=== PATIENT | female | born 1945 | race Caucasian/White ===

== ENCOUNTER 2020-02-24 11:09 | Inpatient (IN) | payer MEDICARE ==
[~2020-02-24] VITALS: Ht 157.5 cm; Wt 132.8 kg
[2020-02-27] MEDS ORDERED: LASIX80 MG PO (09:24)
[2020-02-27] MEDS ORDERED: FEMARA2.5 MG PO (09:24)
[2020-02-27] MEDS ORDERED: BAYER CHEWABLE81 MG PO (09:24)
[2020-02-27] MEDS ORDERED: METOPROLOL TART50 MG PO (09:25)
[2020-02-27] MEDS ORDERED: LISINOPRIL2.5 MG PO (09:25)
[2020-02-27] MEDS ORDERED: LIPITOR40 MG PO (09:26)
[2020-02-27] MEDS ORDERED: ULTRAM50 MG PO (09:26)
[2020-02-27 10:52] LABS: BILIRUBIN NEGATIVE (NEGATIVE); GLUCOSE NEGATIVE (NEGATIVE); KETONE NEGATIVE (NEGATIVE); NITRITE NEGATIVE (NEGATIVE); UROBILINOGEN NORMAL (NORMAL)
[2020-02-27 11:35] LABS: HEMATOCRIT 42.1 % (36.0-48.0); HEMOGLOBIN 13.4 g/dL (12-16); MCH 30.2 pg (26.0-34.0); MCHC 31.8 g/dL (31.0-37.0); MCV 94.8 fL (80.0-100.0); MEAN PLATELET VOLUME 10.3 fL (7.4-10.4); RBC 4.44 10x6/uL (4.00-5.40); WBC 10.8 10x3/uL (4.8-10.8)
[2020-02-27 11:59] LABS: ALBUMIN 3.4 g/dL (3.4-5.0); ANION GAP 8.5 mmol/L (8-16); BILIRUBIN - TOTAL 0.55 mg/dL (0.2-1.3); CALCIUM 9.4 mg/dL (8.5-10.1); CARBON DIOXIDE 31.7 mmol/L (21.0-32.0); CREATININE - SERUM 0.9 mg/dL (0.6-1.3); POTASSIUM - SERUM 4.2 mmol/L (3.5-5.1); PROTEIN - SERUM 7.2 g/dL (6.4-8.2)
[2020-02-27 12:45] LABS: APTT 26.4 SECONDS (22.8-39.4); INR 0.95 (0.85-1.17); PROTIME 12.6 SECONDS (11.6-15.0)
[2020-03-10] VITALS (43 sets, daily range): BP systolic 81–149; BP diastolic 47–82; BMI 37.6
[2020-03-10] MEDS ORDERED: VITAMIN D1000 UNIT PO (06:18)
[2020-03-10 06:32] LABS: BILIRUBIN NEGATIVE (NEGATIVE); GLUCOSE NEGATIVE (NEGATIVE); KETONE NEGATIVE (NEGATIVE); NITRITE NEGATIVE (NEGATIVE); UROBILINOGEN NORMAL (NORMAL)
[2020-03-10 06:32] LABS: BASOPHILS 0.3 % (0-2); EOSINOPHILS 2.2 % (0-7); HEMATOCRIT 38.9 % (36.0-48.0); HEMOGLOBIN 12.4 g/dL (12-16); IMMATURE GRANULOCYTES 0.3 % (0-5); LYMPHOCYTES 21.6 % (15-50); MCHC 31.9 g/dL (31.0-37.0); MCV 94.2 fL (80.0-100.0); MEAN PLATELET VOLUME 9.7 fL (7.4-10.4); MONOCYTES 6.5 % (2-11); NEUTROPHILS 69.1 % (40-80); PLATELET COUNT 282 10x3/uL (130-400); RBC 4.13 10x6/uL (4.00-5.40); RDW 13.9 % (11.5-14.5); WBC 9.7 10x3/uL (4.8-10.8)
[2020-03-10 06:43] LABS: ANION GAP 9.4 mmol/L (8-16); CALCIUM 9.7 mg/dL (8.5-10.1); CARBON DIOXIDE 30.2 mmol/L (21.0-32.0); CREATININE - SERUM 1.1 mg/dL (0.6-1.3); POTASSIUM - SERUM 3.6 mmol/L (3.5-5.1)
[2020-03-10 06:50] LABS: APTT 28.1 SECONDS (22.8-39.4); INR 0.99 (0.85-1.17)
--- NOTE | 2020-03-10 12:13 | NUR ---
SBP 80S. DR. ZAVALA NOTIFIED. ORDERED 250 BOLUS OF PLASMOLYTE.
--- NOTE | 2020-03-10 19:00 | NUR ---
RECIVED BEDSIDE SHIFT REPORT. PT IS SLEEPING WITH EYES CLOSED SNORING. SHE WAKES EASILY. SHE IS A&OX4, VSS. HE STATES"I DONT HAVE ANY PAIN AT THIS MOMENT". SHE IS ORIENTED TO USE OF CALL LIGHT AND MORPHINE ESCALATOR SERVICE MECHANIC BUTTON. SHE HAS ONE IN EACH HAND. HER DRESSING IS CDI, NO S/S OF BLEEDING. BOTH CHEST TUBES ON THE LEFT ARE CDI AND DRAINING SLIGHTLY. CHEST TUBES ARE HOOKED TO 20CM OF SUCTION WITH NO AIR LEAK NOTED. MELINA HOSE AND SCD'S ARE ON BILAT, MACHINE IS HOOKED AND ON. WILLIAM NOTED BELOW BLADDER AND DRAINING. LEFT SUBCLAVIN IS CDI. RIGHT RADIAL A-LINE CDI WITH WRIST PROTECTOR, EXTREMTY IS WARM AND PINK WITH GOOD SENSATION. WILL PERFORM FULL ASSESSMENT AND DOC IN FLOWSHEET. IV FLOWSHEET WILL DOC WELL. TAUGHT PT ABOUT DEEP BREATHING AND COUGHING Q2H AND SHOWED HOW TO USE A INCENTIVE SPIROMETER. PT VERBALIZED UNDERSTANDING. BED IS LEFT LOW,SIDE RAISLX2,CALL LIGHT WITHIN REACH. WILL CONITNUE TO MONITOR
--- NOTE | 2020-03-10 20:42 | NUR ---
PT IS RESTIGN IN BED WITH EYES CLOSED SNORING. SHE HAS YET TO USE HER IMPLEMENTATION COORDINATOR MORPHINE BUTTON. HER VSS. BED IS LOW,SIDE RASILSX2,CALL LIGHT WITHIN REACH. WILL CONINTUE TO MONITOR
--- NOTE | 2020-03-10 21:20 | NUR ---
PT USED SPIROMETER AND PULLED IN 500 X3. PT VOICES"NO" TO PAIN. PROVIDED ICE CHIPS PER REQEST TO WET MOUTH. VSS. BED IS LOW,SIDE RASILX2,CALL LIGHT WITHIN REACH. WILL CONINTUE TO MONITOR.
--- NOTE | 2020-03-10 23:03 | MORECARE ---
CASE MANAGEMENT DISCHARGE SUMMARY PATIENT: JAMES DUGGAN UNIT: [id number] ADM DATE: 03/10/20 AGE: 74 : 45 SEX: F ROOM/BED: [facility] AUTHOR: RUPINDER MAYS PHYSICIAN: REFERRING PHYSICIAN: MARY ZAVALA MD DATE OF SERVICE: 03/10/20 Discharge Plan Patient Name: JAMES DUGGAN [facility] [facility] 1945 Planned Disposition: Anticipated Discharge Date: Discharge Date: Expected LOS: Initial Reviewer: [email or web address] Initial Review Date: 03/10/2020 Generated: 03/11/20 12:03 am DCPIA - Discharge Planning Initial Assessment Updated by [email or web address]: Brittaney Camejo on 03/10/20 11:03 pm * Is the patient Alert and Oriented? Yes * How many steps to enter\exit or inside your home? * PCP [facility] * [facility] * Preadmission Environment Home Alone * ADLs Independent * Equipment None * List name and contact numbers for known caregivers / representatives who currently or will assist patient after discharge: IAM DUGGAN - DAUGHTER - [phone] * Verbal permission to speak to the caregivers and representatives has been obtained from the patient. Yes * Community resources currently utilized None * Additional services required to return to the preadmission environment? No * Can the patient safely return to the preadmission environment? Yes * Has this patient been hospitalized within the prior 30 days at any hospital? No Patient Name: JAMES DUGGAN Page [phone] at 2303 All edits/amendments must be made on the electronic document DICTATION DATE: 03/10/202302 MEDICAL INFORMATION OFFICER: JULES 03/10/202302 RPT#: [id number] DC DATE: STATUS: ADM IN [facility] [address] [place] [address] END OF REPORT
--- NOTE | 2020-03-10 23:09 | NUR ---
PT IS RESTING IN BED RECIVING BREATHIGN TX. SHE HAS EYES CLOSED BUT OPENS QUICKLY WHEN CALL NAME. SHE IS A&OX4. VOICES"NO" TO ANY PAIN AT THIS TIME. VSS. HAD COUGH AND DEEP BREATH WITH GOOD EFFORT. SHE VOICES" I DONT WANT TO TURN RIGHT NOW BECAUSE IT VERY UNCOMFORTABLE". PROVIDED HER WITH ICE CHIPS PER REQUEST TO WET MOUTH. RE-ASSESSMETN DONE AND WILL DOC IN FLOWSHEET. ALSO DOC I/O OF CHEST TUBES AND URINE AT THIS TIME. HER BED IS LEFT LOW,SIDE RAISLX2,CALL LIGHT WITHIN REACH. WILL CONTINUE TO MONITOR
--- NOTE | 2020-03-10 23:10 | MORECARE ---
CASE MANAGEMENT DISCHARGE SUMMARY PATIENT: JAMES DUGGAN UNIT: [id number] ADM DATE: 03/10/20 AGE: 74 : 45 SEX: F [facility] AUTHOR: RUPINDER MAYS PHYSICIAN: REFERRING PHYSICIAN: MARY ZAVALA MD DATE OF SERVICE: 03/10/20 Discharge Plan Patient Name: JAMES DUGGAN Facility: [facility]:[place] : 1945 Planned Disposition: Anticipated Discharge Date: Discharge Date: Expected LOS: Initial Reviewer: [email or web address] Initial Review Date: 03/10/2020 Generated: 03/11/20 12:10 am Comments DCP- Discharge Planning Updated by [email or web address]: Brittaney Camejo on 03/10/20 10:[address] Patient Name: JAMES DUGGAN Admission Status: Urgent Accout number: [id number] Admission Date: 03-10-2020 : 1945 Admission Diagnosis: Attending: MARY ZAVALA Current LOS: 1 Anticipated DC Date: Planned Disposition: Primary Insurance: [facility] MEDICARE SOLUTIONS Discharge Planning Comments: CM met with patient to complete initial dc planning assessment. CM educated patient on the CM role and verbal consent given by patient to complete assessment. Patient lives at home with family. Patient is independent. At discharge patient plans to return home and feels this is a safe discharge. CM discussed availability of home health, rehab services, and medical equipment. Patient will have family to transport home. Patient denied known discharge needs at this time. CM will continue to follow and will assist as needed with dc plans/needs. Software Firmware Engineer: Brittaney Camejo DCPIA - Discharge Planning Initial Assessment Updated by [email or web address]: Brittaney Camejo on 03/10/20 11:03 pm * Is the patient Alert and Oriented? Yes * How many steps to enter\exit or inside your home? * PCP LUL * [facility] * Preadmission Environment Home Alone * ADLs Independent * Equipment None * List name and contact numbers for known caregivers / representatives who currently or will assist patient after discharge: IAM DUGGAN - DAUGHTER - [phone] * Verbal permission to speak to the caregivers and representatives has been obtained from the patient. Yes * Community resources currently utilized None * Additional services required to return to the preadmission environment? No * Can the patient safely return to the preadmission environment? Yes * Has this patient been hospitalized within the prior 30 days at any hospital? No Last DP export: 03/10/20 10:03 pm Patient Name: JAMES DUGGAN Page [phone] at 2310 All edits/amendments must be made on the electronic document DICTATION DATE: 03/10/202309 AIRCRAFT LIFE SUPPORT FITTER: JULES 03/10/202309 RPT#: [id number] DC DATE: STATUS: ADM IN [facility] [address] [place] [address] END OF REPORT
[2020-03-11] VITALS (24 sets, daily range): BP systolic 90–121; BP diastolic 47–64; Ht 157.5 cm; Wt 132.8 kg
--- NOTE | 2020-03-11 01:15 | NUR ---
PT IS RESTING IN BED WITH EYES CLOSED AWAKES EASILY. VSS. SHE DOES VERABLIZES"IM HURTING ALITTLE". I ENCOURAGED HER TO USE HER PAIN BUTTON WHICH SHE PUSHED. AFTER A FEW MINUTES SHE VERBALIZED"IT IS HELPING". I REMINDED HER THAT SHE CAN PUSH THE BUTTON EVERY 10 MINUTES IF NEEDED FOR PAIN. SHE VERALIZED UNDERSTANDING. PROVIDED ICE CHIPS PER REQUEST. HAD HER COUGH AND DEEP BREATH. BED WAS LEFT LOW,SIDE RAISLX2,CALL LIGHT WITHIN REACH. WILL CONINTUE TO MONITOR
--- NOTE | 2020-03-11 03:12 | NUR ---
PT IS RESTING IN BED WITH EYES CLOSED, WAKES EASILY. VSS. RE-ASSESSMENT PERFORMED AND WILL DOC IN FLOWSHEET. SHE VOICES"NO" TO PAIN AT THIS TIME. SO NET MENDER MORPHINE IS MANAGING PAIN WELL. I/O'S PERFORMED AND WILL DOC IN FLOWSHEET. REPOSITIONED MELINA HOSE FOR COMFORT AND SCD'S ARE ON BILAT. BED IS LEFT LOW,SIDE RAISLX2,CALL LIGHT WITHIN REACH. WILL CONITNUE TO MONITOR
--- NOTE | 2020-03-11 05:22 | NUR ---
PT IS RESTING IN BED WITH EYES CLOSED, VSS. WAKES EASILY. TURNED CARFULLY BY LOG ROLLING TO PLACE AIR MATTRES UNDER PT. SHE TOLERATED WELL BY SAYING "IT FELLS GOOD TO MOVE ACUTALLY". PROVIDED HER WITH ICE CHIPS WHICH SHE TOLERATES WELL. BED IS LEFT LOW,SIDE RAISLX2,CALL LIGHT WITHIN REACH. WILL CONITNUE TO MONITOR
[2020-03-11 05:31] LABS: BASOPHILS 0.1 % (0-2); EOSINOPHILS 0.5 % (0-7); HEMATOCRIT 37.4 % (36.0-48.0); HEMOGLOBIN 11.9 g/dL (12-16); IMMATURE GRANULOCYTES 0.2 % (0-5); LYMPHOCYTES 11.4 % (15-50); MCH 30.3 pg (26.0-34.0); MCHC 31.8 g/dL (31.0-37.0); MCV 95.2 fL (80.0-100.0); MEAN PLATELET VOLUME 9.6 fL (7.4-10.4); MONOCYTES 4.9 % (2-11); NEUTROPHILS 82.9 % (40-80); PLATELET COUNT 246 10x3/uL (130-400); RBC 3.93 10x6/uL (4.00-5.40); RDW 14.1 % (11.5-14.5); WBC 11.4 10x3/uL (4.8-10.8)
[2020-03-11 06:11] LABS: ALBUMIN 2.8 g/dL (3.4-5.0); ANION GAP 8.9 mmol/L (8-16); BILIRUBIN - TOTAL 0.92 mg/dL (0.2-1.3); POTASSIUM - SERUM 3.9 mmol/L (3.5-5.1); PROTEIN - SERUM 6.4 g/dL (6.4-8.2)
--- NOTE | 2020-03-11 06:38 | NUR ---
PT IS RESTING IN BED WITH EYES CLOSED, WAKES EASILY. VSS. PROVIDED ICE CHIPS TO WET MOUTH. PT STILL TOLERATING WELL WITH NO N/V. SHE VOICES"NO" TO ANY PAIN AT THIS TIME. BED IS LOW,SIDE RAISLX2,CALL LIGHT WITHIN REACH.
--- NOTE | 2020-03-11 07:00 | NUR ---
AWAKES EASILY TO VERBAL STIMULI SKIN WARM AND DRY. CHEST TUBE LEFT SIDE FLUCUATE WITH RESP. SERSANG DRAINAGE IN TUBES. TO 20 CM SUCTION. LEFT SUBCLAVIAN CENTRAL LINE INFUSING WITH PLASAMAYLTE, ZINCEF AND MORPHINE GREENBELT. WILLIAM CATH PATENT DRAINING CLEAR ROBINA URINE. MONITOR SR. DENIES PAIN.
--- NOTE | 2020-03-11 08:00 | NUR ---
CLEAR L IQUD BREAKFAST SERVED. ATE JELLO COFFEE AND JUICE. REVIEWED MENU FOR LUNCH.
--- NOTE | 2020-03-11 11:01 | OP ---
PATIENT NAME: JAMES DUGGAN MEDICAL RECORD: [id number] :[birth year] LOCATION:[facility] D.CV05 ADMISSION DATE:03/10/20 SURGEON: MARY ZAVALA MD DATE OF OPERATION: 03/10/2020 SURGEON: Mary Zavala MD PROCEDURES PERFORMED: 1. Left thoracoscopy. 2. Left upper lobe lobectomy. 3. Mediastinal lymph node dissection. 4. Bronchoscopy. PREOPERATIVE DIAGNOSIS: Small cell carcinoma of the lung. POSTOPERATIVE DIAGNOSIS: Small cell carcinoma of the lung. ANESTHESIA: General endotracheal anesthesia. ESTIMATED BLOOD LOSS: 20 cc. COMPLICATIONS: None. SPECIMENS: 1. Left upper lobe. 2. Lymph node from 5 discrete stations, AP window, paraaortic inferior pulmonary ligament. COMPLICATIONS: None. CONDITION: Stable. DISPOSITION: ICU. OPERATIVE FINDINGS: Relatively well-developed fissures, mass in the upper lobe near the major fissure and a calcified granuloma of the lower lobe. Several adhesions to the medial aspect of the upper lobe, limited ability for full thoracoscopy. Also with difficulty due to the patient's obese size and large chest diameter, required extension of the mini thoracotomy to allow safe resection. Postoperatively, no air leak and good reexpansion. OPERATIVE INDICATION: Biopsy proven carcinoma of the lung without evidence of lymph node metastasis. PROCEDURE IN DETAIL: The patient was brought to the operating suite. Double lumen endotracheal anesthesia was obtained, bronchoscopy was performed. No endobronchial lesions. The patient turned into the right lateral decubitus position with appropriate padding including axillary roll. Left chest sterilely prepped and draped. Working anteriorly at the midclavicular line about the 8th interspace, a scope was introduced. Visualization was performed, but the mass could not be identified. Posterolateral thoracotomy was made. Dissection of the rib was removed to allow a trap door type opening and working under direct finger palpation, the mass was identified. Additionally, granuloma of the lower lobe. The fissure was retracted medially and the hilum was dissected out, but working was difficult due to the large distance between the skin and the chest; OPERATIVE REPORT [id number] JAMES DUGGAN therefore, the incision was extended and a formal thoracotomy incision was made. Hilum was freed, branch of the pulmonary artery were divided with staple gun and ligatures and suture ligatures. Pulmonary vein was identified from the lower lobe and kept out of harm's way. Superior pulmonary vein was divided. Bronchus was dissected out after dividing the fissures and the bronchus was stapled after ensuring that the lower lobe would reinflate. Hemostasis was ensured, one suture at the edge of bronchial artery. Thorough irrigation with saline. No air leak under water. Chest was replaced apically and inferiorly. Lung was reinflated. The chest was closed with pericostal sutures, two running muscle layer, subcutaneous and subcuticular. The patient returned to the supine position, extubated in good condition to ICU. TRANSINT:[id number] Voice Confirmation ID: [id number] DOCUMENT ID: [id number] MARY ZAVALA MD at 1101 CC: TAMIR MOURA MD and LINDA MCCARTY [id number] DICTATION DATE: 03/10/20 1511 PLANNING DIVISION SUPERINTENDENT: 03/10/20 2351 ADM IN [facility] [address] [place] [address]
--- NOTE | 2020-03-11 11:30 | NUR ---
HELGA DC'D RIGHT RADIAL. PRESSURE HELD 5 MIN. NO BLEEDING FROM SITE. SMALL BRUISE NOTED. PRESSURE DRESSING APPLIED. PATIENT TOLERATED WELL ENCOURAGE INCENTIVE SPIROMETRY. TAKING PO FLUIDS WELL.
--- NOTE | 2020-03-11 12:15 | NUR ---
LUNCH TRAY SERVED. EXPLAINED WHERE FOOD IS ON PLATE. DUE TO MINITED VISION.
--- NOTE | 2020-03-11 13:25 | NUR ---
SITTING ON SIDE OF BED PER PHYSICAL THERAPY. TOLERATING WELL
--- NOTE | 2020-03-11 16:30 | NUR ---
DINNER TRAY SERVED. ANDERS AT BEDSIDE. GOOD COUGH EFFORT. ENCOURAGE TO USE INCENTIVE JOHNNY.
--- NOTE | 2020-03-11 19:30 | NUR ---
PT AOX4, VSS, C/O PAIN 11/14- FISHER TERRAPIN TEACHING COMPLETED, PT VERBALIZES UNDERSTANDING. LUNG SOUNDS CLEAR/DIMINISHED, STRONG COUGH, I/S COMPLETED REACHING 500 X10. S1S2 HEARD, PERIPHERAL PULSES PRESENT. BOWEL SOUNDS ACTIVE IN ALL QUADRANTS. CT X2 TO L CHEST INTACT, SEROUS DRAINAGE PRESENT. PT REPOSITIONED WITH PROMINENCES BRIDGED. VSS, DENIES NEEDS. CPOC.
--- NOTE | 2020-03-11 20:00 | NUR ---
PT STATES PAIN IS NOW A 1-2, COMFORTABLE LEVEL PER PT. RESTING, VSS.
--- NOTE | 2020-03-11 21:35 | NUR ---
HS MEDS GIVEN, FRESH WATER TO BEDSIDE. PT REPOSITIONED WITH PROMINENCES BRIDGED. COUGH/DB/IS WITH GOOD EFFORT. VSS.
--- NOTE | 2020-03-11 23:44 | NUR ---
PT REPOSITIONED, PROMINENCES BRIDGED. COUGH/DB ENCOURAGED. I/S COMPLETED REACHING 500 X10. NO C/O PAIN AT THIS TIME. VSS. CALL LIGHT AND POT FLUXER BUTTON WITHIN PT REACH. CPOC.
[2020-03-12] VITALS (24 sets, daily range): BP systolic 103–140; BP diastolic 48–83
--- NOTE | 2020-03-12 00:40 | NUR ---
CVL DRESSING CHANGED PER PROTOCOL USING STERILE TECHNIQUE
--- NOTE | 2020-03-12 01:44 | NUR ---
PT REPOSITIONED WITH PROMINENCES BRIDGED, COUGH/DB WITH GOOD EFFORT. COMPLETED I/S REACHING 500 X10. VSS, CPOC.
--- NOTE | 2020-03-12 03:30 | NUR ---
COUGH/DB/IS WITH GOOD EFFORT. PT REPOSITIONED WITH PROMINENCES BRIDGED. CPOC.
--- NOTE | 2020-03-12 05:30 | NUR ---
CHG BATH AND COMPLETE LINEN CHANGE PROVIDED. UP TO CHAIR WITH RN X2. VSS, CPOC.
[2020-03-12 06:09] LABS: BASOPHILS 0.2 % (0-2); EOSINOPHILS 2.2 % (0-7); HEMATOCRIT 35.7 % (36.0-48.0); HEMOGLOBIN 11.1 g/dL (12-16); IMMATURE GRANULOCYTES 0.4 % (0-5); LYMPHOCYTES 13.6 % (15-50); MCH 29.8 pg (26.0-34.0); MCHC 31.1 g/dL (31.0-37.0); MEAN PLATELET VOLUME 9.6 fL (7.4-10.4); MONOCYTES 5.2 % (2-11); NEUTROPHILS 78.4 % (40-80); PLATELET COUNT 229 10x3/uL (130-400); RBC 3.72 10x6/uL (4.00-5.40); RDW 14.4 % (11.5-14.5); WBC 11.1 10x3/uL (4.8-10.8)
[2020-03-12 06:46] LABS: ALBUMIN 2.6 g/dL (3.4-5.0); ANION GAP 8.1 mmol/L (8-16); BILIRUBIN - TOTAL 0.5 mg/dL (0.2-1.3); CALCIUM 8.8 mg/dL (8.5-10.1); CARBON DIOXIDE 30.9 mmol/L (21.0-32.0); CREATININE - SERUM 0.9 mg/dL (0.6-1.3); PROTEIN - SERUM 6.3 g/dL (6.4-8.2)
--- NOTE | 2020-03-12 07:30 | NUR ---
UP IN CHAIR AT BEDSIDE AWAKES WITHOUT DIFFICULTY. SKIN WARM AND DRY. CHEST TUBE RIGHT SIDE FLUCUATING WITH RESP. RATE. SERSANG DRAINAGE IN TUBING. NO AIR LEAK NOTED. GOOD COUGH PRODUCTIVE BLOODY SPUTUM. OXYGEN AT 2 LITERS PER NC. LEFT SUBCLAVIAN CENTRAL LINE INFUSING WITH PLASAMALYTE AT 30 ML HOUR, MORPHINE DEPENDENCY DIRECTOR. PATIENT STATES SHE DOES FORGET TO USE IT. WILLIAM CATH PATENT CLEAR ROBINA URINE. MONITOR SR-ST. ENCOURAGE TO USE INCENTIVE SPIROMETRY. PATIENT IS LEGALLY BLIND, BUT STATES SHE CAN SEE THE GREEN LIGHT ON HER DEPENDENCY DIRECTOR BUTTON. NEEDS ADDITIONAL INSTRUCTIONS WITH MEALS.
--- NOTE | 2020-03-12 08:00 | NUR ---
BREAKFAST SERVED. DRANK JUICE AND COFFEE, ATE A FEW BITES. NOT A BREAKFAST PERSON.
--- NOTE | 2020-03-12 09:00 | NUR ---
FAMILY HERE UPDATE GIVEN. READJUSTED IN CHAIR.
--- NOTE | 2020-03-12 10:24 | NUR ---
DR. ACKERMAN HERE TALKED WITH PATIENT.
--- NOTE | 2020-03-12 11:30 | NUR ---
LUNCH TRAY SERVED REPOSITIONED IN CHAIR.
--- NOTE | 2020-03-12 13:19 | NUR ---
RETURNED TO BED PER PHYSICAL THERAPY PATIENT TOLERATED FAIR. FAMILY HERE UPDATE GIVEN. ATE GOOD LUNCH.
--- NOTE | 2020-03-12 13:40 | NUR ---
HERE SUCTION DC'D TO CHEST TUBES
--- NOTE | 2020-03-12 15:00 | NUR ---
SLEEPING EYES CLOSED RESP DEEP AND REGULAR. NO DISTRESS. ALLOWED PATIENT TO REST
--- NOTE | 2020-03-12 16:42 | NUR ---
AWAKES EASILY TO VERBAL STIMULI SKIN WARM AND DRY. DINNER TRAY SERVED. NO AIR LEAK NOTED ON CHEST TUBES. MONITOR SR. SCD ON LOWER LEGS
[2020-03-13] VITALS (22 sets, daily range): BP systolic 96–131; BP diastolic 43–74
[2020-03-13 06:35] LABS: eGFR NON AFRICAN AMERICAN 57 mL/min (90-120)
--- NOTE | 2020-03-13 08:00 | NUR ---
SHIFT ASSESSMENT COMPLETED. DENIES PAIN. CHEST TUBES INTACT TO GRAVITY DRAIN. BREAKFAST SERVED.
[2020-03-13 08:24] LABS: BASOPHILS 0.1 % (0-2); EOSINOPHILS 1.8 % (0-7); HEMATOCRIT 32.1 % (36.0-48.0); HEMOGLOBIN 10.2 g/dL (12-16); IMMATURE GRANULOCYTES 0.4 % (0-5); LYMPHOCYTES 7.6 % (15-50); MCH 30.1 pg (26.0-34.0); MCHC 31.8 g/dL (31.0-37.0); MCV 94.7 fL (80.0-100.0); MEAN PLATELET VOLUME 9.2 fL (7.4-10.4); MONOCYTES 6.2 % (2-11); NEUTROPHILS 83.9 % (40-80); PLATELET COUNT 187 10x3/uL (130-400); RBC 3.39 10x6/uL (4.00-5.40); RDW 14.2 % (11.5-14.5); WBC 11.1 10x3/uL (4.8-10.8)
--- NOTE | 2020-03-13 09:40 | NUR ---
UP IN HALLWAY WITH PT. LIMITED DISTANCE WALKED DUE TO SOB. UP IN RECLINER AT BEDSIDE.
[2020-03-13 09:41] LABS: GLUCOSE 138 mg/dL (74-106); UREA NITROGEN 14 mg/dL (7-18)
[2020-03-13 09:42] LABS: CALC OSMOLALITY 278 mosm/kg (275-300); CREATININE - SERUM 0.7 mg/dL (0.6-1.3); SODIUM 138 mmol/L (136-145)
[2020-03-13 09:43] LABS: CARBON DIOXIDE 31.5 mmol/L (21.0-32.0); CHLORIDE - SERUM 102 mmol/L (98-107); POTASSIUM - SERUM 4.1 mmol/L (3.5-5.1)
[2020-03-13 09:44] LABS: CALCIUM 7.7 mg/dL (8.5-10.1)
[2020-03-13 09:45] LABS: ALKALINE PHOSPHATASE 94 U/L (30-120); ALT (SGPT) 56 U/L (10-68)
[2020-03-13 09:46] LABS: ALBUMIN 2.2 g/dL (3.4-5.0); BILIRUBIN - TOTAL 0.62 mg/dL (0.2-1.3); PROTEIN - SERUM 5.2 g/dL (6.4-8.2)
--- NOTE | 2020-03-13 10:38 | NUR ---
Nutrition Follow-up: POD 3 thoracotomy. Pt reports good appetite but states that she is not a breakfast eater. Denies N/V, chewing/swallowing difficulties. Diet: Regular Wt: 195# (03/13); 205.1# (03/11) Last BM: 03/09 Labs noted: Glu 124, Ca 7.5, Alb 1.3 Meds noted: Protonix -Encourage PO intake and honor food preferences. -Monitor wt. -RD following.
--- NOTE | 2020-03-13 11:30 | NUR ---
REASSESSMENT DONE. REMAINS UP IN CHAIR. DENIES PAIN.
--- NOTE | 2020-03-13 12:30 | NUR ---
CHG BATH GIVEN. ASSISTED TO BED. C/O BACK DISCOMFORT AFTER SITTING IN CHAIR. REFUSES PAIN MED. NO MORPHINE ELECTRICIAN JOURNEYMAN WIREMAN USED THIS SHIFT.
--- NOTE | 2020-03-13 14:05 | NUR ---
CHEST TUBES REMOVED BY DR. ZAVALA. STERILE 4X4 AND TEGADERM OCCLUSIVE DRESSING APPLIED. TOLERATED WELL. SPO2 MID-90S ON 2L/M O2.
[2020-03-13] MEDS ORDERED: LOPRESSOR25 MG PO (14:45)
[2020-03-13] MEDS ORDERED: PERCOCET 5-3251 TAB PO (14:48)
--- NOTE | 2020-03-13 16:00 | NUR ---
ELECTRIC CELL TENDER AND PLASMALYTE DISCONTINUED. CVL IS SALINE LOCKED.
--- NOTE | 2020-03-13 16:50 | NUR ---
SUPPER SERVED. DENIES PAIN. ENCOURAGED TO USE INCENTIVE SPIROMETER. SINUS TACHYCARDIA ON MONITOR.
--- NOTE | 2020-03-13 18:00 | NUR ---
SLEEPING WITH HOB AT 30 DEGREES. TEMP 99.9 VIA WILLIAM PROBE. SPO2 97 ON 2L/M O2.
--- NOTE | 2020-03-13 19:00 | NUR ---
REPORT RECEIVED. RECEIVED PATIENT IN BED. RESTING WITH EYES CLOSED, EASILY ROUSED AND ALERT. ORIENTED X 4. DENIES PAIN. ASSESSMENT COMPLETED PER FLOW SHEET WITH NO ACUTE DISTRESS OBSERVED. MONITORS CONNECTED TO PATIENT WITH ALARMS SET. VSS. CALL LIGHT IN REACH AND ABLE TO UTILIZE TO MAKE NEEDS KNOWN. INSTRUCTED ON USE OF INSENTIVE SPIROMETER AND COUGHING/DEEP BREATHING. PATIENT VERBALIZED UNDERSTANDING AND PERFORMED WITH GOOD EFFORT. DENIES DYSPNEA/SOB. RESP EVEN AND UNLABORED. WILL CONTINUE CURRENT POC
[2020-03-14] VITALS (23 sets, daily range): BP systolic 115–147; BP diastolic 62–86
[2020-03-14 06:21] LABS: BASOPHILS 0.1 % (0-2); EOSINOPHILS 1.9 % (0-7); HEMATOCRIT 31.2 % (36.0-48.0); HEMOGLOBIN 9.8 g/dL (12-16); IMMATURE GRANULOCYTES 0.2 % (0-5); LYMPHOCYTES 8.7 % (15-50); MCH 29.8 pg (26.0-34.0); MCHC 31.4 g/dL (31.0-37.0); MCV 94.8 fL (80.0-100.0); MEAN PLATELET VOLUME 9.4 fL (7.4-10.4); MONOCYTES 6.2 % (2-11); NEUTROPHILS 82.9 % (40-80); PLATELET COUNT 214 10x3/uL (130-400); RBC 3.29 10x6/uL (4.00-5.40); WBC 9.2 10x3/uL (4.8-10.8)
[2020-03-14 06:46] LABS: ALKALINE PHOSPHATASE 89 U/L (30-120); ALT (SGPT) 44 U/L (10-68); CALC OSMOLALITY 283 mosm/kg (275-300); CALCIUM 8.2 mg/dL (8.5-10.1); CARBON DIOXIDE 31.7 mmol/L (21.0-32.0); CHLORIDE - SERUM 106 mmol/L (98-107); CREATININE - SERUM 0.7 mg/dL (0.6-1.3); GLUCOSE 138 mg/dL (74-106); POTASSIUM - SERUM 3.8 mmol/L (3.5-5.1); PROTEIN - SERUM 5.8 g/dL (6.4-8.2); SODIUM 141 mmol/L (136-145); UREA NITROGEN 15 mg/dL (7-18); eGFR NON AFRICAN AMERICAN 87 mL/min (90-120)
--- NOTE | 2020-03-14 07:30 | NUR ---
UP IN CHAIR AT BEDSIDE. AWAKES EASILY. SLEEPY. DENIES PAIN. OXYGEN REMOVED. PATIENT DESAT TO 88% WHILE SITTING IN CHAIR. OXYGEN REPLACED AT 2 LITERS PER NC AND PULSE OX RETURNED TO 97%. PATIENT DOES GET SHORT OF BREATH EASILY WITH AMBULATION. WILLIAM CATH PATENT DRAINING CLEAR ROBINA URINE. MONITOR ST. WHILE OXYGEN WAS OFF HEART RATE INCREASED INTO 120'S. RETURN TO 109 AFTER OXYGEN REPLACED. INCISIONS DRY AND INTACT.
--- NOTE | 2020-03-14 08:52 | NUR ---
ATE HALF OF BISCUIT AND RENDON. DRANK COFFE AND JUICE. TALKING ON PHONE
--- NOTE | 2020-03-14 13:40 | NUR ---
AMBULATED TO BATHROOM WITH OXYGEN AND WALKER TOLERATED FAIR. PASSING GAS. HERE UPDATE GIVEN. STEWART BOLAÑOS DC'D
--- NOTE | 2020-03-14 15:45 | NUR ---
SISTER HER. PATIENT EYES OPEN, MOVING ALL EXTREMITITES, RESP IN 30'S. SISTER TALKING TO PATIENT PATIENT NODING HEAD YES AND NO TO QUESTIONS APPRIOPIATELY.PATIENT NODES NO SHE DOES NOT WANT ALL MACHINES REMOVED. PATIENT NODES YES SHE WANTS MEDS TO HELP HER REST. ALLOWED SISTER TIME TO TALK WITH PATIENT. VERSED GIVEN TO REDUCE RESP RATE BELOW 30 AND ALLOW PATIEN TO REST COMFORTABLY.
--- NOTE | 2020-03-14 15:54 | NUR ---
OFFERED A BATH, PATIENT STATES MAYBE LATER. AWAKES EASILY DENIES PAIN.
--- NOTE | 2020-03-14 16:00 | NUR ---
UP IN CHAIR AT BEDSIDE. NEEDS ASSISTANCES AND WALKER TO AMBULATE, CAN NOT BALANCE HERSELF WITHOUT ASSISTANCES.
--- NOTE | 2020-03-14 16:56 | NUR ---
DINNER TRAY SERVED AND SET UP.
--- NOTE | 2020-03-14 17:05 | NUR ---
PATIENT RESTING COMFORTABLY. NO DISTRESS.
--- NOTE | 2020-03-14 17:19 | MORECARE ---
CASE MANAGEMENT DISCHARGE SUMMARY PATIENT: JAMES DUGGAN UNIT: [id number] ADM DATE: 03/10/20 AGE: 74 : 45 SEX: F [facility] AUTHOR: RUPINDER MAYS PHYSICIAN: REFERRING PHYSICIAN: MARY ZAVALA MD DATE OF SERVICE: 03/14/20 Discharge Plan Patient Name: JAMES DUGGAN Facility: [facility]:[place] : 1945 Planned Disposition: Anticipated Discharge Date: Discharge Date: Expected LOS: Initial Reviewer: [email or web address] Initial Review Date: 03/10/2020 Generated: 03/14/20 6:18 pm Comments DCP- Discharge Planning Updated by [email or web address]: Brittaney Camejo on 03/14/20 4:[address] CM spoke with patient regarding DME and CESAR was signed. Patient stated that she doesn't think she is ready for discharge. She states that she gets SOB to easily. Patient states that she thinks she needs some rehab. CESAR signed for rehab. Rehab prescreen initiated. Patient will require an auth from her insurance before she can go into rehab. She will also need to have two therapy evals. Order placed for OT eval. D/C IMM signed 03/14/20 @ 0952. CM will continue to follow and assist as needed with discharge planning / needs. DCP- Discharge Planning Updated by [email or web address]: Brittaney Camejo on 03/10/20 10:[address] Patient Name: JAMES DUGGAN Admission Status: Urgent Accout number: [id number] Admission Date: 03-10-2020 : 1945 Admission Diagnosis: Attending: MARY ZAVALA Current LOS: 1 Anticipated DC Date: Planned Disposition: Primary Insurance: [facility] MEDICARE SOLUTIONS Discharge Planning Comments: CM met with patient to complete initial dc planning assessment. CM educated patient on the CM role and verbal consent given by patient to complete assessment. Patient lives at home with family. Patient is independent. At discharge patient plans to return home and feels this is a safe discharge. CM discussed availability of home health, rehab services, and medical equipment. Patient will have family to transport home. Patient denied known discharge needs at this time. CM will continue to follow and will assist as needed with dc plans/needs. Vice Chancellor: Brittaney Camejo DCPIA - Discharge Planning Initial Assessment Updated by [email or web address]: Brittaney Camejo on 03/10/20 11:03 pm * Is the patient Alert and Oriented? Yes * How many steps to enter\exit or inside your home? * PCP [facility] * [facility] * Preadmission Environment Home Alone * ADLs Independent * Equipment None * List name and contact numbers for known caregivers / representatives who currently or will assist patient after discharge: IAM DUGGAN - DAUGHTER - [phone] * Verbal permission to speak to the caregivers and representatives has been obtained from the patient. Yes * Community resources currently utilized None * Additional services required to return to the preadmission environment? No * Can the patient safely return to the preadmission environment? Yes * Has this patient been hospitalized within the prior 30 days at any hospital? No Coverage Notice Reviewer: [email or web address] Pablo Camejo Notice Issued Date-Time: 03/14/2020 9:50 Notice Type: Patient Choice Letter Notice Delivered To: Patient Relationship to Patient: Engine Builder Name: Delivery Method: HAND - Hand Delivered Fany Days: Prior Verbal Notification: Recipient Understood Notice: Yes Recipient Signature: Yes Med Rec Note Co-signed by Attending: Coverage Notice Comment: no preference on DME no preference on rehab - INpatient @ [facility] Reviewer: [email or web address] Pablo Camejo Notice Issued Date-Time: 03/14/2020 9:52 Notice Type: IM Discharge Notice Notice Delivered To: Patient Relationship to Patient: Self Engine Builder Name: Delivery Method: HAND - Hand Delivered Fany Days: Prior Verbal Notification: Recipient Understood Notice: Yes Recipient Signature: Yes Med Rec Note Co-signed by Attending: Coverage Notice Comment: Last DP export: 03/10/20 10:10 pm Patient Name: JAMES DUGGAN Page [phone] at 1719 All edits/amendments must be made on the electronic document DICTATION DATE: 03/14/201718 PURCHASING CONTRACTING CLERK: JULES 03/14/201718 RPT#: [id number] DC DATE: STATUS: ADM IN [facility] [address] [place] [address] END OF REPORT
--- NOTE | 2020-03-14 18:20 | NUR ---
AMBULATED TO BATHROOM VOIDED. COMPLETE HIBCLENS BATH GIVEN WITH HAIR WASHED. PATIENT TOLERATED FAIR. AMBULATED TO BED. SCD TO LOWER LEGS.
--- NOTE | 2020-03-14 19:00 | NUR ---
REPORT RECEIVED AND CARE ASSUMED. RECEIVED PATIENT IN BED, RESTING WITH EYES CLOSED. EASILY ROUSED AND ALERT. RESP EVEN AND UNLABORED ON 02@ 2L/MIN VIA NC ALERT AND ORIENTED X 4. DENIES PAIN. ASSESSMENT COMPLETED PER FLOW SHEET WITH NO ACUTE DISTRESS OBSERVED. MONITORS CONNECTED TO PATIENT WITH ALARMS SET. VSS. CALL LIGHT IN REACH AND ABLE TO UTILIZE TO MAKE NEEDS KNOWN. WILL CONTINUE CURRENT POC
--- NOTE | 2020-03-14 23:00 | NUR ---
ASSISTED OUT OF BED TO BATHROOM. AMBULATED WITH USE OF WALKER AND SBA. GAIT STEADY. VOIDED WITHOUT DIFF. EASILY SHORT OF BREATH WITH MINIMAL EXERTION. ASSISTED BACK TO BED.
[2020-03-15] VITALS (24 sets, daily range): BP systolic 109–142; BP diastolic 46–87
[2020-03-15 06:31] LABS: BASOPHILS 0.2 % (0-2); EOSINOPHILS 3.2 % (0-7); HEMATOCRIT 30.9 % (36.0-48.0); HEMOGLOBIN 9.7 g/dL (12-16); IMMATURE GRANULOCYTES 0.3 % (0-5); LYMPHOCYTES 11.3 % (15-50); MCH 29.6 pg (26.0-34.0); MCHC 31.4 g/dL (31.0-37.0); MCV 94.2 fL (80.0-100.0); MEAN PLATELET VOLUME 9.4 fL (7.4-10.4); MONOCYTES 6.4 % (2-11); NEUTROPHILS 78.6 % (40-80); PLATELET COUNT 227 10x3/uL (130-400); RBC 3.28 10x6/uL (4.00-5.40); RDW 14.1 % (11.5-14.5); WBC 8.8 10x3/uL (4.8-10.8)
[2020-03-15 06:44] LABS: ALKALINE PHOSPHATASE 92 U/L (30-120); ALT (SGPT) 47 U/L (10-68); BILIRUBIN - TOTAL 0.58 mg/dL (0.2-1.3); CALC OSMOLALITY 284 mosm/kg (275-300); CALCIUM 8.5 mg/dL (8.5-10.1); CARBON DIOXIDE 31.9 mmol/L (21.0-32.0); CHLORIDE - SERUM 107 mmol/L (98-107); CREATININE - SERUM 0.7 mg/dL (0.6-1.3); GLUCOSE 137 mg/dL (74-106); POTASSIUM - SERUM 3.7 mmol/L (3.5-5.1); PROTEIN - SERUM 5.9 g/dL (6.4-8.2); SODIUM 141 mmol/L (136-145); UREA NITROGEN 18 mg/dL (7-18); eGFR NON AFRICAN AMERICAN 87 mL/min (90-120)
--- NOTE | 2020-03-15 07:00 | NUR ---
UP IN CHAIR AT BEDSIDE WITH WALKER. PATIENT TIRED NOT FEELING WELL THIS AM. SKIN WARM AND DRY. MONITOR SR-ST. LEFT SUBCLAVIAN TRIPEL LUMEN SALINE LOCDED. INCISION LEFT BACK INTACT NO RENESS OR DRAINAGE. DRESSING LEFT SIDE DRY AND INTACT. DENIES PAIN.
--- NOTE | 2020-03-15 08:00 | NUR ---
BREAKFAST SERVED ATE HALF OF [place] ROLL DRANK COFFEE. NAPPING IN CHAIR.
--- NOTE | 2020-03-15 09:00 | NUR ---
DR. ZAVALA HERE NO NEW ORDERS.
--- NOTE | 2020-03-15 10:00 | NUR ---
AMBULATED TO BATHROOM. GAIT IMPROVED WITH WALKER. LESS SHORTNESS OF BREATH
--- NOTE | 2020-03-15 11:30 | NUR ---
LUNCH TRAY SERVED AND SET UP. GOOD COUGH INCENTIVE TO 1000ML. DENIES PAIN. INCISION BACK WITHOUT REDNESS OR DRAINAGE. DRESSING LEFT LATERAL SIDE DRY AND INTACT.
--- NOTE | 2020-03-15 13:15 | NUR ---
AMBULATED TO BED WITH MINIMAL ASSISTANCES WITH WALKER. DID BECOME SHORT OF BREATH WHEN RETURNING TO BED
--- NOTE | 2020-03-15 19:00 | NUR ---
REPORT RECEIVED. PT LAYING IN BED, AAOX4. NO ACUTE DISTRESS NOTED. ASSESSMENT COMPLETED, SEE FLOWSHEET. LT SUBCLAVIAN CVL TO SL, SEE IV FLOWSHEET. WILL CONTINUE TO MONITOR.
--- NOTE | 2020-03-15 19:04 | NUR ---
RETURNED TO BED AMBULATES FAIR WITH WALKER. PAIN GIVEN TO HELP PATIENT REST
[2020-03-16] VITALS (21 sets, daily range): BP systolic 101–167; BP diastolic 50–84
--- NOTE | 2020-03-16 00:14 | NUR ---
PT ASSISTED TO BATHROOM. PT REPORTED SUDDEN, SHORT-LIVED, SHARP PAIN BESIDE RIGHT BREAST. WILL CONTINUE TO MONITOR.
--- NOTE | 2020-03-16 03:05 | NUR ---
PT TRANSPORTED TO [facility].
--- NOTE | 2020-03-16 03:24 | NUR ---
PT ASSISTED BACK IN BED FROM XRAY.
[2020-03-16 07:25] LABS: BASOPHILS 0.2 % (0-2); EOSINOPHILS 4.3 % (0-7); HEMATOCRIT 32.9 % (36.0-48.0); HEMOGLOBIN 10.3 g/dL (12-16); IMMATURE GRANULOCYTES 0.3 % (0-5); LYMPHOCYTES 18.1 % (15-50); MCH 29.9 pg (26.0-34.0); MCHC 31.3 g/dL (31.0-37.0); MCV 95.4 fL (80.0-100.0); MEAN PLATELET VOLUME 9.3 fL (7.4-10.4); MONOCYTES 5.2 % (2-11); NEUTROPHILS 71.9 % (40-80); PLATELET COUNT 272 10x3/uL (130-400); RBC 3.45 10x6/uL (4.00-5.40); RDW 14.4 % (11.5-14.5); WBC 9.4 10x3/uL (4.8-10.8)
[2020-03-16 07:32] LABS: ALBUMIN 2.1 g/dL (3.4-5.0); BILIRUBIN - TOTAL 0.4 mg/dL (0.2-1.3); CALCIUM 8.7 mg/dL (8.5-10.1); CREATININE - SERUM 0.8 mg/dL (0.6-1.3); PROTEIN - SERUM 6.1 g/dL (6.4-8.2)
--- NOTE | 2020-03-16 09:15 | NUR ---
PHYSICAL THERAPY IN ROOM. PT WALKED 250 FEET WITH MINIMAL ASSISTANCE. NO SOB NOTED. WILL CONTINEU TO MONITOR
--- NOTE | 2020-03-16 10:20 | NUR ---
Rehab Prescreening Consult recieved and the chart has been reviewed. She is [facility] and will require a preauth for the ARU. She had indicated to OT this AM during the eval she wanted to go home because her [id number] who was a nurse was going to be staying with her. Discussed wuth the CM Brittaney Camejo RN. Vickie Jiménez RN Clinical Liaison, Rehab
--- NOTE | 2020-03-16 12:04 | NUR ---
Nutrition Follow-up: POD 6 thoracotomy. Reports eating ~75% of breakfast this AM. -BM; +flatus. Diet: Regular PO intake: 63% avg x last 4 meals Wt: 210# (03/15) Labs noted: Glu 120, Alb 2.1 Meds noted: Protonix -Encourage PO intake and honor food preferences. -Monitor wt. -RD following.
--- NOTE | 2020-03-16 13:44 | NUR ---
PT SPEAKING WITH LEXI ON PHONE. WILL CONTINUE TO MONITOR
--- NOTE | 2020-03-16 22:37 | NUR ---
OT NOTE: PT COMPLETED TOILETING HYGIENE WITH SBA. PT REQUIRED MIN A WITH GARMENT MANAGEMENT. PT COMPLETED ADL MOB TASKS WITH CGA. PT DID WELL. [id number] THANK YOU,DIANNA HUMPHREY
[2020-03-17] VITALS (8 sets, daily range): BP systolic 107–154; BP diastolic 45–68
--- NOTE | 2020-03-17 07:00 | NUR ---
RECEIVED BEDSIDE REPORT ON PATIENT AND ASSUMED CARE. PATIENT ALERT AND ORIENTED X 4, SITTING UP IN BEDSIDE CHAIR, VSS. HEAD TO TOE ASSESSMENT COMPLETED.
--- NOTE | 2020-03-17 08:30 | NUR ---
DRESSING TO LEFT BACK CHANGED, BETADINE OINTMENT APPLIED, 4X4S AND TEGADERM. OLD DRESSING NOTED TO BE MOIST WITH DRAINAGE. PATIENT TO XRAY FOR CXRAY.
--- NOTE | 2020-03-17 09:10 | NUR ---
REPORT CALLED TO HARRY MORRIS. PATIENT TRANSFERRED TO ROOM 2121 VIA WHEELCHAIR.
--- NOTE | 2020-03-17 09:38 | NUR ---
ARRIVE TO ROOM VIA WHEELCHAIR FROM XRAY. NO REPORT RECIEVED AT THIS TIME. DIRECTOR [facility]RAFT [facility] WAS TOLD BY ALEXANDRA STANTON IN CVICU TO BRING PATIENT TO ROOM AFTER XRAY. 0900 MEDICATIONS NOT YET GIVEN. CALL ALEXANDRA STANTON TO REQUEST MEDICATIONS TO BE GIVEN AND CHART TO BE BROUGHT TO FLOOR. AMBULATES TO BED WITH ASSISTANCE. DENIES ANY NEEDS AT THIS TIME. CONTINUE PLAN OF CARE AND SAFETY PRECAUTIONS.
--- NOTE | 2020-03-17 16:15 | NUR ---
OT NOTE: PT COMPLETED SUPINE TO SIT WITH SBA. PT COMPLETED SIT TO STAND WITH CGA. PT COMPLETED ADL MOB WITH CGA. PT COMPLETED UE AROM WITH FUNCTIONAL WALKER MANAGEMENT. PT COMPLETED BITA SOCKS WITH MIN A. [phone] THANK YOU,DIANNA HUMPHREY
--- NOTE | 2020-03-17 16:42 | NUR ---
ALERT AND ORIENTED X4. LAYING IN BED. DC LT CHEST CVL ORDERED, TIP INTACT. PRESSURE HELD AND REMAIN FLAT PER PROTOCOL. DENIES ANY NEEDS. CONTINUE PLAN OF CARE AND SAFETY PRECAUTIONS.
--- NOTE | 2020-03-17 19:50 | NUR ---
RECEIVED BEDSIDE REPORT. PATIENT IS ALERT AND ORIENTED, RESTING COMFORTABLY IN BED. RESPIRATIONS ARE EVEN AND UNLABORED. NO S/S OF DISTRESS. NO C/O PAIN. NEEDS MET. CALL LIGHT WITHIN REACH. WILL CPOC.
[2020-03-18] VITALS: BP 111/67
[2020-03-18 04:00] VITALS: BP 110/68
[2020-03-18 06:56] LABS: BASOPHILS 0.3 % (0-2); EOSINOPHILS 3.9 % (0-7); HEMOGLOBIN 12.2 g/dL (12-16); IMMATURE GRANULOCYTES 0.7 % (0-5); LYMPHOCYTES 21.4 % (15-50); MCHC 32.1 g/dL (31.0-37.0); MCV 93.6 fL (80.0-100.0); MEAN PLATELET VOLUME 9.2 fL (7.4-10.4); MONOCYTES 5.3 % (2-11); NEUTROPHILS 68.4 % (40-80); PLATELET COUNT 294 10x3/uL (130-400); RBC 4.06 10x6/uL (4.00-5.40); RDW 14.2 % (11.5-14.5); WBC 9.1 10x3/uL (4.8-10.8)
[2020-03-18 07:40] LABS: ALBUMIN 2.3 g/dL (3.4-5.0); BILIRUBIN - TOTAL 0.49 mg/dL (0.2-1.3); CALCIUM 8.4 mg/dL (8.5-10.1); CARBON DIOXIDE 31.4 mmol/L (21.0-32.0); CREATININE - SERUM 0.9 mg/dL (0.6-1.3); POTASSIUM - SERUM 3.4 mmol/L (3.5-5.1); PROTEIN - SERUM 5.4 g/dL (6.4-8.2)
[2020-03-18 08:50] VITALS: BP 106/53
--- NOTE | 2020-03-18 09:51 | NUR ---
LARGE AMOUNTS OF SEROUS DRAINAGE PRESENT ON DRESSING. REMOVED DRESSING. CLEANED WITH WOUND CLEANSER AND APPLIED NEW PRESSURE DRESSING. SITE IS CLEAN AND INTACT. INCISIONS ARE HEALING APPROPRIATELY. WILL CTM.
--- NOTE | 2020-03-18 12:07 | MORECARE ---
CASE MANAGEMENT DISCHARGE SUMMARY PATIENT: JAMES DUGGAN UNIT: [id number] ADM DATE: 03/10/20 AGE: 74 : 45 SEX: F ROOM/BED: D.0994 AUTHOR: RUPINDER MAYS PHYSICIAN: REFERRING PHYSICIAN: MARY ZAVALA MD DATE OF SERVICE: 03/18/20 Discharge Plan Patient Name: JAMES DUGGAN Facility: [facility]:[place] : 1945 Planned Disposition: Anticipated Discharge Date: Discharge Date: Expected LOS: Initial Reviewer: [email or web address] Initial Review Date: 03/10/2020 Generated: 03/18/20 1:06 pm Comments DCP- Discharge Planning Updated by [email or web address]: Brittaney Camejo on 03/14/20 4:[address] CM spoke with patient regarding DME and CESAR was signed. Patient stated that she doesn't think she is ready for discharge. She states that she gets SOB to easily. Patient states that she thinks she needs some rehab. CESAR signed for rehab. Rehab prescreen initiated. Patient will require an auth from her insurance before she can go into rehab. She will also need to have two therapy evals. Order placed for OT eval. D/C IMM signed 03/14/20 @ 0952. CM will continue to follow and assist as needed with discharge planning / needs. DCP- Discharge Planning Updated by [id number]: Brittaney Camejo on 03/10/20 10:[address] Patient Name: JAMES DUGGAN Admission Status: Urgent Accout number: [id number] Admission Date: 03-10-2020 : 1945 Admission Diagnosis: Attending: MARY ZAVALA Current LOS: 1 Anticipated DC Date: Planned Disposition: Primary Insurance: [facility] MEDICARE SOLUTIONS Discharge Planning Comments: CM met with patient to complete initial dc planning assessment. CM educated patient on the CM role and verbal consent given by patient to complete assessment. Patient lives at home with family. Patient is independent. At discharge patient plans to return home and feels this is a safe discharge. CM discussed availability of home health, rehab services, and medical equipment. Patient will have family to transport home. Patient denied known discharge needs at this time. CM will continue to follow and will assist as needed with dc plans/needs. Numerical Tool Programmer: Brittaney Camejo DCPIA - Discharge Planning Initial Assessment Updated by [email or web address]: Brittaney Camejo on 03/10/20 11:03 pm * Is the patient Alert and Oriented? Yes * How many steps to enter\exit or inside your home? * PCP [facility] * [facility] * Preadmission Environment Home Alone * ADLs Independent * Equipment None * List name and contact numbers for known caregivers / representatives who currently or will assist patient after discharge: IAM DUGGAN - RITA - [phone] * Verbal permission to speak to the caregivers and representatives has been obtained from the patient. Yes * Community resources currently utilized None * Additional services required to return to the preadmission environment? No * Can the patient safely return to the preadmission environment? Yes * Has this patient been hospitalized within the prior 30 days at any hospital? No Coverage Notice Reviewer: [id number] Pablo Camejo Notice Issued Date-Time: 03/14/2020 9:50 Notice Type: Patient Choice Letter Notice Delivered To: Patient Relationship to Patient: Clinical Nutritionist Name: Delivery Method: HAND - Hand Delivered Fany Days: Prior Verbal Notification: Recipient Understood Notice: Yes Recipient Signature: Yes Med Rec Note Co-signed by Attending: Coverage Notice Comment: no preference on DME no preference on rehab - [facility]patient [facility] Reviewer: [id number] Pablo Camejo Notice Issued Date-Time: 03/14/2020 9:52 Notice Type: IM Discharge Notice Notice Delivered To: Patient Relationship to Patient: Self Clinical Nutritionist Name: Delivery Method: HAND - Hand Delivered Fany Days: Prior Verbal Notification: Recipient Understood Notice: Yes Recipient Signature: Yes Med Rec Note Co-signed by Attending: Coverage Notice Comment: Reviewer: [id number] Pablo Rosario Notice Issued Date-Time: 03/18/2020 9:20 Notice Type: IM Discharge Notice Notice Delivered To: Patient Relationship to Patient: Clinical Nutritionist Name: Delivery Method: HAND - Hand Delivered Fany Days: Prior Verbal Notification: Yes Recipient Understood Notice: Recipient Signature: Yes Med Rec Note Co-signed by Attending: Coverage Notice Comment: DC IMM delivered, explained, signed by the patient, and placed in chart. Signed form also left with the patient. Reviewer: [id number] - Pat Edds Notice Issued Date-Time: 03/18/2020 9:20 Notice Type: Patient Choice Letter Notice Delivered To: Patient Relationship to Patient: Clinical Nutritionist Name: Delivery Method: HAND - Hand Delivered Fany Days: Prior Verbal Notification: Recipient Understood Notice: Yes Recipient Signature: Yes Med Rec Note Co-signed by Attending: Coverage Notice Comment: home health. Last DP export: 03/14/20 4:19 pm Patient Name: JAMES DUGGAN Page [phone] at 1207 All edits/amendments must be made on the electronic document DICTATION DATE: 03/18/20 1206 CARPENTRY INSTRUCTOR: JULES 03/18/20 1206 RPT#: [id number] DC DATE: STATUS: ADM IN [facility] [address] [place] [address] END OF REPORT
[2020-03-18 16:29] LABS: APTT 27.8 SECONDS (22.8-39.4); INR 0.98 (0.85-1.17); PROTIME 12.9 SECONDS (11.6-15.0)
--- NOTE | 2020-03-18 17:04 | NUR ---
CHEST TUBE IN PLACE AND SET TO LOW SUCTION. WATER CHAMBER SEALED AND FLUCTUATES ON INSPIRATION. SEROUS SANGINOUS OUTPUT RECEIVED. WILL CTM.
--- NOTE | 2020-03-18 19:51 | NUR ---
RECEIVED BEDSIDE REPORT. ROUNDING COMPLETE. ALERT AND ORIENTED, RESTING COMFORTABLY IN BED. RESPIRATIONS ARE EVEN AND UNLABORED. NO S/S OF DISTRESS. NO C/O PAIN. CALL LIGHT WITHIN REACH. WILL CPOC.
[2020-03-18 20:00] VITALS: BP 112/59
--- NOTE | 2020-03-18 21:19 | NUR ---
OT NOTE: PT COMPLETED SUPINE TO SIT WITH CGA. PT COMPLETED EOB SITTING WITH SPV. PT COMPLETED SIT TO STAND WITH CGA. PT COMPLETED ADL MOB WITH R/W REQUIRED CGA. PT REQUIRED TOTAL A WITH BITA HILTON. [id number] THANK YOU,DIANNA HUMPHREY
[2020-03-19] VITALS: BP 119/63
[2020-03-19 08:58] VITALS: BP 102/51
[2020-03-19 09:38] LABS: ANION GAP 8.2 mmol/L (8-16); CALCIUM 8.8 mg/dL (8.5-10.1); CARBON DIOXIDE 34.5 mmol/L (21.0-32.0); POTASSIUM - SERUM 3.7 mmol/L (3.5-5.1)
[2020-03-19 09:46] LABS: BASOPHILS 0.2 % (0-2); EOSINOPHILS 4.7 % (0-7); HEMATOCRIT 33.1 % (36.0-48.0); HEMOGLOBIN 10.4 g/dL (12-16); IMMATURE GRANULOCYTES 0.8 % (0-5); LYMPHOCYTES 18.4 % (15-50); MCHC 31.4 g/dL (31.0-37.0); MCV 95.4 fL (80.0-100.0); MONOCYTES 4.7 % (2-11); NEUTROPHILS 71.2 % (40-80); PLATELET COUNT 336 10x3/uL (130-400); RBC 3.47 10x6/uL (4.00-5.40); RDW 14.2 % (11.5-14.5); WBC 10.2 10x3/uL (4.8-10.8)
[2020-03-19 11:24] VITALS: BP 113/44
--- NOTE | 2020-03-19 11:26 | NUR ---
Nutrition Follow-up: POD 9 thoracotomy. Chest tube placed yesterday. Pt reports appetite ok/normal. Requests fresh fruit with meals. Diet: Regular Wt: 292# (03/17) Last BM: 03/18 Labs reviewed Meds reviewed -Encourage PO intake and honor food preferences. -Monitor wt; noted daily wts ordered. -RD following.
[2020-03-19 15:17] VITALS: BP 107/41
--- NOTE | 2020-03-19 15:21 | NUR ---
OT NOTE: ATTEMPTED PT IN AM, HOWEVER, SHE REPORTED THAT SHE DID NOT SLEEP WELL AND THAT HER BP WAS LOW.. CHECKED ON PT LATER AND SHE WAS FEELING MUCH BETTER.. ABLE TO GET TO EOB WITH SPV; PERFORMED SIMPLE GROOMING TASKS WITH SET UP; TOILETING WITH MIN/CGA; ABLE TO AMB IN ROOM WITH WALKER, 02, AND CONTAINER FOR CHEST TUBE DRAINAGE AND CGA/MIN ASSIST; PT THEN AMBULATED INTO HALLWAY FOR STRENGTH/ENDURANCE, SHE REPORTED THAT SHE WAS FEELING MUCH BETTER. NO REST BREAKS REQUIRED FOR 150+ FT. EMELYN MAYA, OTR/L [phone]
[2020-03-19 18:31] VITALS: BP 105/59
--- NOTE | 2020-03-20 00:58 | NUR ---
CHANGED DRESSING TO LEFT SIDE OF TORSO. GAUZE SATURATED WITH DRAINAGE. UA OBTAINED AND SENT TO LAB. NO S/S OF DISTRESS. NO C/O PAIN. NEEDS MET. CALLLIGHT WITHIN REACH. WILL CPOC.
[2020-03-20 01:04] VITALS: BP 106/59
[2020-03-20 01:58] LABS: BILIRUBIN NEGATIVE (NEGATIVE); GLUCOSE NEGATIVE (NEGATIVE); KETONE NEGATIVE (NEGATIVE); NITRITE POSITIVE (NEGATIVE); UROBILINOGEN NORMAL (NORMAL)
[2020-03-20 02:00] LABS: BACTERIA MANY /hpf (NEGATIVE); EPITHELIAL CELLS 0-5 /hpf (0-5); RED CELLS - URINE 0-5 /hpf (0-5)
[2020-03-20 07:06] LABS: BASOPHILS 0.4 % (0-2); EOSINOPHILS 4.9 % (0-7); HEMOGLOBIN 10.3 g/dL (12-16); IMMATURE GRANULOCYTES 0.6 % (0-5); LYMPHOCYTES 21.9 % (15-50); MCH 29.5 pg (26.0-34.0); MCHC 30.3 g/dL (31.0-37.0); MEAN PLATELET VOLUME 9.3 fL (7.4-10.4); MONOCYTES 6.6 % (2-11); NEUTROPHILS 65.6 % (40-80); PLATELET COUNT 376 10x3/uL (130-400); RBC 3.49 10x6/uL (4.00-5.40); RDW 14.5 % (11.5-14.5); WBC 9.7 10x3/uL (4.8-10.8)
[2020-03-20 07:16] LABS: MCV 97.4 fL (80.0-100.0)
[2020-03-20 08:20] LABS: ANION GAP 9.9 mmol/L (8-16); CALCIUM 8.7 mg/dL (8.5-10.1); CARBON DIOXIDE 31.9 mmol/L (21.0-32.0); CREATININE - SERUM 0.9 mg/dL (0.6-1.3); POTASSIUM - SERUM 4.8 mmol/L (3.5-5.1)
[2020-03-20 08:49] VITALS: BP 117/67
--- NOTE | 2020-03-20 10:43 | NUR ---
UP AMBULATING HALLWAY WITH PT ASSIST. CT INTACT.
[2020-03-20 12:00] VITALS: BP 102/49
--- NOTE | 2020-03-20 12:36 | NUR ---
OT NOTE: PT COMPLETED SUPINE TO SIT WITH SBA. PT REQUIRED EXTRA TIME AT EOB SECONDARY TO DIZZNINESS. NURSING AWARE. PT COMPLETED BED TO BSC TSF WITH CGA. PT COMPLETED GARMENT MANAGEMENT WITH CGA. PT COMPLETED TOILTET HYGIENE WITH SETUP. PT REQUIRED REST BREAK. [phone] THANK YOU,DIANNA HUMPHREY
--- NOTE | 2020-03-20 15:16 | NUR ---
DRSG CHANGED TO LEFT SIDE. SEROUS DRAINAGE NOTED.
--- NOTE | 2020-03-20 19:55 | NUR ---
RECEIVED UP IN BED WITH EYES OPEN AND TV ON. ALERT AND ORIENTED X4. UP WITH ASSIST TO B/R. O2@ 2 LITERS PER N/C. IV TO LT FA SL. CHEST TUBE TO LT CHEST WITH DSG CDI. ALSO HAS DSG TO LT BACK CDI. RT ARM RESERVE D/T MASCETOMY. DENIES ANY NEEDS AT THIS TIME.
[2020-03-20 20:45] VITALS: BP 113/54
[2020-03-21] VITALS (7 sets, daily range): BP systolic 119–141; BP diastolic 54–69
--- NOTE | 2020-03-21 07:00 | NUR ---
RECEIVED REPORT. ASSUMED CARE OF PATIENT. CALL LIGHT WITHIN REACH. PATIENT WITH CHEST TUBE TO LIWS, 310 MARKED ON CANISTER AT THIS TIME. DENIES NEEDS. NO DISTRESS. WHITE BOARD UPDATED, BEDSIDE SHIFT REPORT COMPLETE.
--- NOTE | 2020-03-21 11:17 | NUR ---
NEW DRESSING APPLIED TO LEFT FLANK/SIDE AREA INCISIONS. TOLERATED WOUND CARE WELL. CHEST TUBE DRESSING REINFORCED. RESTING IN BED, NO DISTRESS.
--- NOTE | 2020-03-21 12:00 | NUR ---
OOB AMBULATING AROUND UNIT WITH PT. NO DISTRESS.
--- NOTE | 2020-03-21 15:43 | NUR ---
PIGTAIL DRAIN FROM LEFT ANTERIOR CHEST PULLED AT BEDSIDE BY . PATIENT TOLERATED REMOVAL OF DRAIN WELL. DRESSING CLEAN, DRY AND INTACT. PATIENT RESTING IN BED WITH EYES OPEN, CONVERSING ON TELEPHONE AT THIS TIME. CXR ORDERED FOR 1729. NO DISTRESS.
[2020-03-21 16:54] LABS: ALBUMIN 2.2 g/dL (3.4-5.0); ANION GAP 7.5 mmol/L (8-16); BILIRUBIN - TOTAL 0.2 mg/dL (0.2-1.3); CALCIUM 8.5 mg/dL (8.5-10.1); CARBON DIOXIDE 30.1 mmol/L (21.0-32.0); POTASSIUM - SERUM 4.6 mmol/L (3.5-5.1); PROTEIN - SERUM 5.5 g/dL (6.4-8.2)
[2020-03-21 17:03] LABS: CREATININE - SERUM 1.2 mg/dL (0.6-1.3)
--- NOTE | 2020-03-21 19:39 | NUR ---
RECIEVED LAYING IN BED WITH EYES OPEN. ALERT AND ORIENTED X4. UP TO BEDSIDE COMMODE. O2@ 2 LITERS PER N/C. IV TO LT FA SL. CHEST TUBE TO LT BACK. RT ARM RESERVED D/T MASCETOMY . DENIES ANY NEEDS AT THIS TIME.
--- NOTE | 2020-03-21 23:36 | NUR ---
REQUEST TO SKIP 0000 V/S'S AND UPDRAFT AT 0100 STATING SHE HAS NOT HAD ANY REST AND IS VERY TIRES. NOTIFIED BLIND HANGER AND RT.
[2020-03-22 02:00] VITALS: BP 123/54
--- NOTE | 2020-03-22 07:15 | NUR ---
AM ROUNDS- PT RESTING COMFORTABLY WITH EYES CLOSED, RESP EVEN AND UNLABORED ON 2L. LT FA IV SL. BEDSIDE RAILS X2, CALL LIGHT IN REACH, NAD NOTED, WILL CONTINUE PLAN OF CARE.
[2020-03-22 08:00] VITALS: BP 106/42
--- NOTE | 2020-03-22 10:52 | MORECARE ---
CASE MANAGEMENT DISCHARGE SUMMARY PATIENT: JAMES DUGGAN UNIT: [id number] ADM DATE: 03/10/20 AGE: 74 : 45 SEX: F ROOM/BED: D.5111 AUTHOR: RUPINDER MAYS PHYSICIAN: REFERRING PHYSICIAN: MARY ZAVALA MD DATE OF SERVICE: 03/22/20 Discharge Plan Patient Name: JAMES DUGGAN Facility: [facility]:[place] : 1945 Planned Disposition: Anticipated Discharge Date: Discharge Date: Expected LOS: Initial Reviewer: [email or web address] Initial Review Date: 03/10/2020 Generated: 03/22/20 11:51 am DCP- Discharge Planning Updated by [email or web address]: Brittaney Camejo on 03/14/20 4:[address] CM spoke with patient regarding DME and CESAR was signed. Patient stated that she doesn't think she is ready for discharge. She states that she gets SOB to easily. Patient states that she thinks she needs some rehab. CESAR signed for rehab. Rehab prescreen initiated. Patient will require an auth from her insurance before she can go into rehab. She will also need to have two therapy evals. Order placed for OT eval. D/C IMM signed 03/14/20 @ 0952. CM will continue to follow and assist as needed with discharge planning / needs. DCP- Discharge Planning Updated by [id number]: Brittaney Camejo on 03/10/20 10:[address] Patient Name: JAMES DUGGAN Admission Status: Urgent Accout number: [id number] Admission Date: 03-10-2020 : 1945 Admission Diagnosis: Attending: MARY ZAVALA Current LOS: 1 Anticipated DC Date: Planned Disposition: Primary Insurance: [facility] MEDICARE SOLUTIONS Discharge Planning Comments: CM met with patient to complete initial dc planning assessment. CM educated patient on the CM role and verbal consent given by patient to complete assessment. Patient lives at home with family. Patient is independent. At discharge patient plans to return home and feels this is a safe discharge. CM discussed availability of home health, rehab services, and medical equipment. Patient will have family to transport home. Patient denied known discharge needs at this time. CM will continue to follow and will assist as needed with dc plans/needs. Zone Supervisor Firearms: Brittaney Camejo DCPIA - Discharge Planning Initial Assessment Updated by [email or web address]: Brittaney Camejo on 03/10/20 11:03 pm * Is the patient Alert and Oriented? Yes * How many steps to enter\exit or inside your home? * PCP [facility] * [facility] * Preadmission Environment Home Alone * ADLs Independent * Equipment None * List name and contact numbers for known caregivers / representatives who currently or will assist patient after discharge: IAM DUGGAN - RITA - [phone] * Verbal permission to speak to the caregivers and representatives has been obtained from the patient. Yes * Community resources currently utilized None * Additional services required to return to the preadmission environment? No * Can the patient safely return to the preadmission environment? Yes * Has this patient been hospitalized within the prior 30 days at any hospital? No Coverage Notice Reviewer: [id number] Pablo Camejo Notice Issued Date-Time: 03/14/2020 9:50 Notice Type: Patient Choice Letter Notice Delivered To: Patient Relationship to Patient: Armature Varnisher Name: Delivery Method: HAND - Hand Delivered Fany Days: Prior Verbal Notification: Recipient Understood Notice: Yes Recipient Signature: Yes Med Rec Note Co-signed by Attending: Coverage Notice Comment: no preference on DME no preference on rehab - INpatient @ [facility] Reviewer: [email or web address] Pablo Camejo Notice Issued Date-Time: 03/14/2020 9:52 Notice Type: IM Discharge Notice Notice Delivered To: Patient Relationship to Patient: Self Armature Varnisher Name: Delivery Method: HAND - Hand Delivered Fany Days: Prior Verbal Notification: Recipient Understood Notice: Yes Recipient Signature: Yes Med Rec Note Co-signed by Attending: Coverage Notice Comment: Reviewer: [email or web address] Pablo Rosario Notice Issued Date-Time: 03/18/2020 9:20 Notice Type: IM Discharge Notice Notice Delivered To: Patient Relationship to Patient: Armature Varnisher Name: Delivery Method: HAND - Hand Delivered Fany Days: Prior Verbal Notification: Yes Recipient Understood Notice: Recipient Signature: Yes Med Rec Note Co-signed by Attending: Coverage Notice Comment: DC IMM delivered, explained, signed by the patient, and placed in chart. Signed form also left with the patient. Reviewer: [id number] - Pat Edds Notice Issued Date-Time: 03/18/2020 9:20 Notice Type: Patient Choice Letter Notice Delivered To: Patient Relationship to Patient: Armature Varnisher Name: Delivery Method: HAND - Hand Delivered Fany Days: Prior Verbal Notification: Recipient Understood Notice: Yes Recipient Signature: Yes Med Rec Note Co-signed by Attending: Coverage Notice Comment: home health. Last DP export: 03/18/20 11:07 a Patient Name: JAMES DUGGAN Page [phone] at 1052 All edits/amendments must be made on the electronic document DICTATION DATE: 03/22/20 1051 FRONT OFFICE REPRESENTATIVE: JULES 03/22/20 1051 RPT#: [id number] DC DATE: STATUS: ADM IN [facility] [address] [place] [address] END OF REPORT
[2020-03-22 12:00] VITALS: BP 98/46
--- NOTE | 2020-03-22 12:56 | NUR ---
OT NOTE: PT REPORTS FEELING MUCH BETTER.. JUST TIRED SHE DID NOT SLEEP MUCH THE PREVIOUS NIGHT. BED MOB WITH SPV.. PT DID REQUIRE ASSIST TO BITA SOCKS SHE REPORTED THAT SHE WAS STILL SORE AND IT WAS PAINFUL TO BEND OVER. ATTEMPTED AMB IN ROOM WITH COSTUME MAKER, HOWEVER, PT IS MUCH SAFER WITH USE OF WALKER. WALKER PROVIDED. PT REPORTS THAT SHE DOES NOT HAVE A WALKER AT HOME. LEFT A NOTE FOR CM TO ORDER WALKER FOR HOME USE. PT ABLE TO AMB GREATER THAN 175 FT IWTHOUT USE OF 02..INITIALLY PT HAD ON MASK AND WAS AMB WITHOUT 02, HER SATS WERE 88-89..MASK REMOVED AND PT CONT TO AMB.. CUES PROVIDED FOR PROPER BREATHING TECH AND PT REMAINED BETWEEN 91-95..WITHOUT CUES FOR BREATHING, PT WOULD OCCASSIONALLY DROP TO 88 BUT QUICKLY RETURNED TO 91 AND ABOVE. EMELYN MAYA, OTR/L [phone]
--- NOTE | 2020-03-22 15:14 | NUR ---
DR. OCONNELL NOT LETTING PT GO HOME TODAY, PT VERY ANXIOUS ABOUT IT. PER DR. ZAVALA PT CAN HAVE ATIVAN 0.25MG BID PRN.
[2020-03-22 16:00] VITALS: BP 103/43
--- NOTE | 2020-03-22 19:44 | NUR ---
RECIEVED LAYING IN BED WITH EYS OPEN. ALERT AND ORIENTED X4. UO AD VERONICA TO B/R. DSG TP LT FLANF CDI. IV TOLT FA SL. RT ARM RESERVED D/T HX OF MASCETIOMY. DENIES ANY NEEDS.
[2020-03-22 20:30] VITALS: BP 113/52
[2020-03-23 00:30] VITALS: BP 123/49
[2020-03-23 04:30] VITALS: BP 108/51
[2020-03-23 05:45] LABS: BASOPHILS 0.3 % (0-2); EOSINOPHILS 3.5 % (0-7); HEMATOCRIT 34.8 % (36.0-48.0); HEMOGLOBIN 10.8 g/dL (12-16); LYMPHOCYTES 22.5 % (15-50); MCV 96.7 fL (80.0-100.0); MEAN PLATELET VOLUME 9.4 fL (7.4-10.4); MONOCYTES 6.7 % (2-11); PLATELET COUNT 385 10x3/uL (130-400); RDW 14.4 % (11.5-14.5); WBC 11.2 10x3/uL (4.8-10.8)
[2020-03-23 06:28] LABS: ANION GAP 9.5 mmol/L (8-16); CALCIUM 9.2 mg/dL (8.5-10.1); CARBON DIOXIDE 30.7 mmol/L (21.0-32.0); CREATININE - SERUM 0.9 mg/dL (0.6-1.3); MAGNESIUM - SERUM 2.4 mg/dL (1.8-2.4); POTASSIUM - SERUM 5.2 mmol/L (3.5-5.1)
[2020-03-23 10:22] VITALS: BP 135/72
[2020-03-23] MEDS ORDERED: LEVAQUIN750 MG PO (10:28)
--- NOTE | 2020-03-23 12:07 | MORECARE ---
CASE MANAGEMENT DISCHARGE SUMMARY PATIENT: JAMES DUGGAN UNIT: [id number] ADM DATE: 03/10/20 AGE: 74 : 45 SEX: F ROOM/BED: D.2822 AUTHOR: RUPINDER MAYS PHYSICIAN: REFERRING PHYSICIAN: MARY ZAVALA MD DATE OF SERVICE: 03/23/20 Discharge Plan Patient Name: JAMES DUGGAN Facility: [facility]:[place] : 1945 Planned Disposition: Anticipated Discharge Date: Discharge Date: Expected LOS: Initial Reviewer: [id number] Initial Review Date: 03/10/2020 Generated: 03/23/20 1:06 pm DCP- Discharge Planning Updated by [email or web address]: Brittaney Camejo on 03/14/20 4:[address] CM spoke with patient regarding DME and CESAR was signed. Patient stated that she doesn't think she is ready for discharge. She states that she gets SOB to easily. Patient states that she thinks she needs some rehab. CESAR signed for rehab. Rehab prescreen initiated. Patient will require an auth from her insurance before she can go into rehab. She will also need to have two therapy evals. Order placed for OT eval. D/C IMM signed 03/14/20 @ 0952. CM will continue to follow and assist as needed with discharge planning / needs. DCP- Discharge Planning Updated by [id number]: Brittaney Camejo on 03/10/20 10:[address] Patient Name: JAMES DUGGAN Admission Status: Urgent Accout number: [id number] Admission Date: 03-10-2020 : 1945 Admission Diagnosis: Attending: MARY ZAVALA Current LOS: 1 Anticipated DC Date: Planned Disposition: Primary Insurance: [facility] MEDICARE SOLUTIONS Discharge Planning Comments: CM met with patient to complete initial dc planning assessment. CM educated patient on the CM role and verbal consent given by patient to complete assessment. Patient lives at home with family. Patient is independent. At discharge patient plans to return home and feels this is a safe discharge. CM discussed availability of home health, rehab services, and medical equipment. Patient will have family to transport home. Patient denied known discharge needs at this time. CM will continue to follow and will assist as needed with dc plans/needs. Global Program Director: Brittaney Camejo DCPIA - Discharge Planning Initial Assessment Updated by [email or web address]: Brittaney Camejo on 03/10/20 11:03 pm * Is the patient Alert and Oriented? Yes * How many steps to enter\exit or inside your home? * PCP [facility] * [facility] * Preadmission Environment Home Alone * ADLs Independent * Equipment None * List name and contact numbers for known caregivers / representatives who currently or will assist patient after discharge: IAM SALINAS - [phone] * Verbal permission to speak to the caregivers and representatives has been obtained from the patient. Yes * Community resources currently utilized None * Additional services required to return to the preadmission environment? No * Can the patient safely return to the preadmission environment? Yes * Has this patient been hospitalized within the prior 30 days at any hospital? No External Providers External Provider: KEVINMary Ponce Contact Date: Service Request Date: Service Type: Resolution: Reviewer: Comments: Coverage Notice Reviewer: [id number] Pablo Camejo Notice Issued Date-Time: 03/14/2020 9:50 Notice Type: Patient Choice Letter Notice Delivered To: Patient Relationship to Patient: Ceramic Coater Name: Delivery Method: HAND - Hand Delivered Fany Days: Prior Verbal Notification: Recipient Understood Notice: Yes Recipient Signature: Yes Med Rec Note Co-signed by Attending: Coverage Notice Comment: no preference on DME no preference on rehab - INpatient @ [facility] Reviewer: [id number] Pablo Camejo Notice Issued Date-Time: 03/14/2020 9:52 Notice Type: IM Discharge Notice Notice Delivered To: Patient Relationship to Patient: Self Ceramic Coater Name: Delivery Method: HAND - Hand Delivered Fany Days: Prior Verbal Notification: Recipient Understood Notice: Yes Recipient Signature: Yes Med Rec Note Co-signed by Attending: Coverage Notice Comment: Reviewer: [id number] Pablo Rosario Notice Issued Date-Time: 03/18/2020 9:20 Notice Type: IM Discharge Notice Notice Delivered To: Patient Relationship to Patient: Ceramic Coater Name: Delivery Method: HAND - Hand Delivered Fany Days: Prior Verbal Notification: Yes Recipient Understood Notice: Recipient Signature: Yes Med Rec Note Co-signed by Attending: Coverage Notice Comment: DC IMM delivered, explained, signed by the patient, and placed in chart. Signed form also left with the patient. Reviewer: [id number] Pablo Rosario Notice Issued Date-Time: 03/18/2020 9:20 Notice Type: Patient Choice Letter Notice Delivered To: Patient Relationship to Patient: Ceramic Coater Name: Delivery Method: HAND - Hand Delivered Fany Days: Prior Verbal Notification: Recipient Understood Notice: Yes Recipient Signature: Yes Med Rec Note Co-signed by Attending: Coverage Notice Comment: home health. Last DP export: 03/22/20 9:52 a Patient Name: JAMES DUGGAN Page [phone] at 1207 All edits/amendments must be made on the electronic document DICTATION DATE: 03/23/20 120 DRY CLEANING SUPERVISOR: JULES 03/23/20 1206 RPT#: [id number] DC DATE: STATUS: ADM IN [facility] [address] [place] [address] END OF REPORT
--- NOTE | 2020-03-23 13:00 | MORECARE ---
CASE MANAGEMENT DISCHARGE SUMMARY PATIENT: JAMES DUGGAN UNIT: [id number] ADM DATE: 03/10/20 AGE: 74 : 45 SEX: F ROOM/BED: D.6204 AUTHOR: RUPINDER MAYS PHYSICIAN: REFERRING PHYSICIAN: MARY ZAVALA MD DATE OF SERVICE: 03/23/20 Discharge Plan Patient Name: JAMES DUGGAN Facility: [facility]:[place] : 1945 Planned Disposition: Anticipated Discharge Date: Discharge Date: Expected LOS: Initial Reviewer: [id number] Initial Review Date: 03/10/2020 Generated: 03/23/20 1:59 pm DCP- Discharge Planning Updated by [email or web address]: Brittaney Camejo on 03/14/20 4:[address] CM spoke with patient regarding DME and CESAR was signed. Patient stated that she doesn't think she is ready for discharge. She states that she gets SOB to easily. Patient states that she thinks she needs some rehab. CESAR signed for rehab. Rehab prescreen initiated. Patient will require an auth from her insurance before she can go into rehab. She will also need to have two therapy evals. Order placed for OT eval. D/C IMM signed 03/14/20 @ 0952. CM will continue to follow and assist as needed with discharge planning / needs. DCP- Discharge Planning Updated by [email or web address]: Brittaney Camejo on 03/10/20 10:[address] Patient Name: JAMES DUGGAN Admission Status: Urgent Accout number: [id number] Admission Date: 03-10-2020 : 1945 Admission Diagnosis: Attending: MARY ZAVALA Current LOS: 1 Anticipated DC Date: Planned Disposition: Primary Insurance: [facility] MEDICARE SOLUTIONS Discharge Planning Comments: CM met with patient to complete initial dc planning assessment. CM educated patient on the CM role and verbal consent given by patient to complete assessment. Patient lives at home with family. Patient is independent. At discharge patient plans to return home and feels this is a safe discharge. CM discussed availability of home health, rehab services, and medical equipment. Patient will have family to transport home. Patient denied known discharge needs at this time. CM will continue to follow and will assist as needed with dc plans/needs. Hvac Services Professional: Brittaney Camejo DCPIA - Discharge Planning Initial Assessment Updated by [id number]: Brittaney Camejo on 03/10/20 11:03 pm * Is the patient Alert and Oriented? Yes * How many steps to enter\exit or inside your home? * PCP [facility] * [facility] * Preadmission Environment Home Alone * ADLs Independent * Equipment None * List name and contact numbers for known caregivers / representatives who currently or will assist patient after discharge: IAM DUGGAN - RITA - [phone] * Verbal permission to speak to the caregivers and representatives has been obtained from the patient. Yes * Community resources currently utilized None * Additional services required to return to the preadmission environment? No * Can the patient safely return to the preadmission environment? Yes * Has this patient been hospitalized within the prior 30 days at any hospital? No External Providers External Provider: OTHER-OTHER Next Contact Date: Service Request Date: Service Type: Resolution: Reviewer: Comments: Coverage Notice Reviewer: [id number] Pablo Camejo Notice Issued Date-Time: 03/14/2020 9:50 Notice Type: Patient Choice Letter Notice Delivered To: Patient Relationship to Patient: Policy Cancellation Clerk Name: Delivery Method: HAND - Hand Delivered Fany Days: Prior Verbal Notification: Recipient Understood Notice: Yes Recipient Signature: Yes Med Rec Note Co-signed by Attending: Coverage Notice Comment: no preference on DME no preference on rehab - INpatient @ [facility] Reviewer: [id number] Pablo Camejo Notice Issued Date-Time: 03/14/2020 9:52 Notice Type: IM Discharge Notice Notice Delivered To: Patient Relationship to Patient: Self Policy Cancellation Clerk Name: Delivery Method: HAND - Hand Delivered Fany Days: Prior Verbal Notification: Recipient Understood Notice: Yes Recipient Signature: Yes Med Rec Note Co-signed by Attending: Coverage Notice Comment: Reviewer: [id number] - Pat Rosario Notice Issued Date-Time: 03/18/2020 9:20 Notice Type: IM Discharge Notice Notice Delivered To: Patient Relationship to Patient: Policy Cancellation Clerk Name: Delivery Method: HAND - Hand Delivered Fany Days: Prior Verbal Notification: Yes Recipient Understood Notice: Recipient Signature: Yes Med Rec Note Co-signed by Attending: Coverage Notice Comment: DC IMM delivered, explained, signed by the patient, and placed in chart. Signed form also left with the patient. Reviewer: [id number] Pablo Rosario Notice Issued Date-Time: 03/18/2020 9:20 Notice Type: Patient Choice Letter Notice Delivered To: Patient Relationship to Patient: Policy Cancellation Clerk Name: Delivery Method: HAND - Hand Delivered Fany Days: Prior Verbal Notification: Recipient Understood Notice: Yes Recipient Signature: Yes Med Rec Note Co-signed by Attending: Coverage Notice Comment: home health. Last DP export: 03/23/20 11:07 a Patient Name: JAMES DUGGAN Page [id number] at 1300 All edits/amendments must be made on the electronic document DICTATION DATE: 03/23/201258 BOOK EDITOR: JULES 03/23/20 1259 RPT#: [id number] DC DATE: STATUS: ADM IN [facility] [address] [place] [address] END OF REPORT
[2020-03-23 13:06] VITALS: BP 134/69
--- NOTE | 2020-03-23 13:15 | MORECARE ---
CASE MANAGEMENT DISCHARGE SUMMARY PATIENT: JAMES DUGGAN UNIT: [id number] ADM DATE: 03/10/20 AGE: 74 : 45 SEX: F ROOM/BED: D.0401 AUTHOR: RUPINDER MAYS PHYSICIAN: REFERRING PHYSICIAN: MARY ZAVALA MD DATE OF SERVICE: 03/23/20 Discharge Plan Patient Name: JAMES DUGGAN Facility: [facility]:[place] : 1945 Planned Disposition: Anticipated Discharge Date: Discharge Date: Expected LOS: Initial Reviewer: [email or web address] Initial Review Date: 03/10/2020 Generated: 03/23/20 2:15 pm Comments DCP- Discharge Planning Updated by [email or web address]: Pat Landis on 03/23/20 12:[address] CM MET WITH PT FOR FINAL DC PLAN. PT STATES SHE IS READY TO GO HOME. STATES SHE WILL NEED A ROLLING WALKER. CESAR SIGNED FOR [facility] FOR DME. CM CALLED [facility] AND SPOKE WITH VICKY. UPDATED O2 TESTING AND ORDERS FOR RLLING WALKER. VICKY STATES A WALKER WILL BE DELIVERED WITHIN THE HOUR. PT STATES SHE NEEDS HOME HEALTH FOR WOUND CARE, PT, AND WILL LIKE ASSISTANCE T HOME FOR HER ADL'S. CM CALLED [facility] AT [phone] AND SPOKE WITH ANU. ANU STATES THEY WILL BE ABLE TO TAKE HER, AND WILL START SERVICE TOMORROW. DC IMM delivered, explained, signed by the patient, and placed in chart. Signed form also left with the patient. PT STATES HER SON WILL PICK HER UP AND TRNSPORT HER HOME. PT DENIES OTHER DC NEEDS. CM WILL CONTINUE TO ASSIST NEEDED. PAT LANDIS DCP- Discharge Planning Updated by [email or web address]: Brittaney Camejo on 03/14/20 4:[address] CM spoke with patient regarding DME and CESAR was signed. Patient stated that she doesn't think she is ready for discharge. She states that she gets SOB to easily. Patient states that she thinks she needs some rehab. CESAR signed for rehab. Rehab prescreen initiated. Patient will require an auth from her insurance before she can go into rehab. She will also need to have two therapy evals. Order placed for OT eval. D/C IMM signed 03/14/20 @ 0952. CM will continue to follow and assist as needed with discharge planning / needs. DCP- Discharge Planning Updated by [id number]: Brittaney Camejo on 03/10/20 10:[address] Patient Name: JAMES DUGGAN Admission Status: Urgent Accout number: [id number] Admission Date: 03-10-2020 : 1945 Admission Diagnosis: Attending: MARY ZAVALA Current LOS: 1 Anticipated DC Date: Planned Disposition: Primary Insurance: [facility] MEDICARE SOLUTIONS Discharge Planning Comments: CM met with patient to complete initial dc planning assessment. CM educated patient on the CM role and verbal consent given by patient to complete assessment. Patient lives at home with family. Patient is independent. At discharge patient plans to return home and feels this is a safe discharge. CM discussed availability of home health, rehab services, and medical equipment. Patient will have family to transport home. Patient denied known discharge needs at this time. CM will continue to follow and will assist as needed with dc plans/needs. Tax Specialist: Brittaney Camejo DCPIA - Discharge Planning Initial Assessment Updated by [email or web address]: Brittaney Camejo on 03/10/20 11:03 pm * Is the patient Alert and Oriented? Yes * How many steps to enter\exit or inside your home? * PCP [facility] * [facility] * Preadmission Environment Home Alone * ADLs Independent * Equipment None * List name and contact numbers for known caregivers / representatives who currently or will assist patient after discharge: IAM DUGGAN - DAUGHTER - [phone] * Verbal permission to speak to the caregivers and representatives has been obtained from the patient. Yes * Community resources currently utilized None * Additional services required to return to the preadmission environment? No * Can the patient safely return to the preadmission environment? Yes * Has this patient been hospitalized within the prior 30 days at any hospital? No Coverage Notice Reviewer: [id number] Pablo Camejo Notice Issued Date-Time: 03/14/2020 9:50 Notice Type: Patient Choice Letter Notice Delivered To: Patient Relationship to Patient: Fur Dresser Name: Delivery Method: HAND - Hand Delivered Fany Days: Prior Verbal Notification: Recipient Understood Notice: Yes Recipient Signature: Yes Med Rec Note Co-signed by Attending: Coverage Notice Comment: no preference on DME no preference on rehab - INpatient @ [facility] Reviewer: [id number] - Brittaney Camejo Notice Issued Date-Time: 03/14/2020 9:52 Notice Type: IM Discharge Notice Notice Delivered To: Patient Relationship to Patient: Self Fur Dresser Name: Delivery Method: HAND - Hand Delivered Fany Days: Prior Verbal Notification: Recipient Understood Notice: Yes Recipient Signature: Yes Med Rec Note Co-signed by Attending: Coverage Notice Comment: Reviewer: YARIEL Landis Notice Issued Date-Time: 03/18/2020 9:20 Notice Type: IM Discharge Notice Notice Delivered To: Patient Relationship to Patient: Fur Dresser Name: Delivery Method: HAND - Hand Delivered Fany Days: Prior Verbal Notification: Yes Recipient Understood Notice: Recipient Signature: Yes Med Rec Note Co-signed by Attending: Coverage Notice Comment: MARSHALL HENNESSY delivered, explained, signed by the patient, and placed in chart. Signed form also left with the patient. Reviewer: [id number] Landis Notice Issued Date-Time: 03/18/2020 9:20 Notice Type: Patient Choice Letter Notice Delivered To: Patient Relationship to Patient: Fur Dresser Name: Delivery Method: HAND - Hand Delivered Fany Days: Prior Verbal Notification: Recipient Understood Notice: Yes Recipient Signature: Yes Med Rec Note Co-signed by Attending: Coverage Notice Comment: home health. Reviewer: [id number] Landis Notice Issued Date-Time: 03/23/2020 11:40 Notice Type: IM Discharge Notice Notice Delivered To: Patient Relationship to Patient: Fur Dresser Name: Delivery Method: HAND - Hand Delivered Fany Days: Prior Verbal Notification: Yes Recipient Understood Notice: Yes Recipient Signature: Yes Med Rec Note Co-signed by Attending: Coverage Notice Comment: DC IMM Reviewer: [id number] Landis Notice Issued Date-Time: 03/23/2020 11:40 Notice Type: Patient Choice Letter Notice Delivered To: Patient Relationship to Patient: Fur Dresser Name: Delivery Method: HAND - Hand Delivered Fany Days: Prior Verbal Notification: Yes Recipient Understood Notice: Yes Recipient Signature: Yes Med Rec Note Co-signed by Attending: Coverage Notice Comment: CESAR FOR [facility] FOR WALKER AND O2, [facility] FOR HOME HEALTH Last DP export: 03/23/20 12:00 p Patient Name: JAMES DUGGAN Page [id number] at 1315 All edits/amendments must be made on the electronic document DICTATION DATE: 03/23/201314 BROADBAND ENGINEER: JULES 03/23/201314 RPT#: [id number] DC DATE: STATUS: ADM IN [facility] [address] [place] [address] END OF REPORT
[2020-03-23] MEDS ORDERED: LIPITOR20 MG PO (15:24)
--- NOTE | 2020-03-24 10:22 | NUR ---
OT NOTE: (DOS 03/23/20) PT COMPLETED BED MOB TASKS WITH [facility]. PT COMPLETED EOB SITTING WITH [facility]. PT COMPLETED TOILETING TASKS WITH [facility]. [phone] THANK YOU,DIANNA HUMPHREY
--- NOTE | 2020-03-25 09:18 | MORECARE ---
CASE MANAGEMENT DISCHARGE SUMMARY PATIENT: JAMES DUGGAN UNIT: [id number] ADM DATE: 03/10/20 AGE: 74 : 45 SEX: F ROOM/BED: D.4887 AUTHOR: RUPINDER MAYS PHYSICIAN: REFERRING PHYSICIAN: MARY ZAVALA MD DATE OF SERVICE: 03/25/20 Discharge Plan Patient Name: JAMES DUGGAN Facility: [facility]:[place] : 1945 Planned Disposition: Anticipated Discharge Date: Discharge Date: 03/23/2020 Expected LOS: Initial Reviewer: [id number] Initial Review Date: 03/10/2020 Generated: 03/25/20 10:18 am Comments DCP- Discharge Planning Updated by [email or web address]: Natalya Landis on 03/23/20 12:[address] CM MET WITH PT FOR FINAL DC PLAN. PT STATES SHE IS READY TO GO HOME. STATES SHE WILL NEED A ROLLING WALKER. CESAR SIGNED FOR [facility] FOR DME. CM CALLED [facility] AND SPOKE WITH VICKY. UPDATED O2 TESTING AND ORDERS FOR RLLING WALKER. VICKY STATES A WALKER WILL BE DELIVERED WITHIN THE HOUR. PT STATES SHE NEEDS HOME HEALTH FOR WOUND CARE, PT, AND WILL LIKE ASSISTANCE T HOME FOR HER ADL'S. CM CALLED [facility] AT [phone] AND SPOKE WITH ANU. ANU STATES THEY WILL BE ABLE TO TAKE HER, AND WILL START SERVICE TOMORROW. DC IMM delivered, explained, signed by the patient, and placed in chart. Signed form also left with the patient. PT STATES HER SON WILL PICK HER UP AND TRNSPORT HER HOME. PT DENIES OTHER DC NEEDS. CM WILL CONTINUE TO ASSIST NEEDED. NATALYA LANDIS DCP- Discharge Planning Updated by [id number]: Brittaney Camejo on 03/14/20 4:[address] CM spoke with patient regarding DME and CESAR was signed. Patient stated that she doesn't think she is ready for discharge. She states that she gets SOB to easily. Patient states that she thinks she needs some rehab. CESAR signed for rehab. Rehab prescreen initiated. Patient will require an auth from her insurance before she can go into rehab. She will also need to have two therapy evals. Order placed for OT eval. D/C IMM signed 03/14/20 @ 0952. CM will continue to follow and assist as needed with discharge planning / needs. DCP- Discharge Planning Updated by [email or web address]: Brittaney Camejo on 03/10/20 10:[address] Patient Name: JAMES DUGGAN Admission Status: Urgent Accout number: [id number] Admission Date: 03-10-2020 : 1945 Admission Diagnosis: Attending: MARY ZAVALA Current LOS: 1 Anticipated DC Date: Planned Disposition: Primary Insurance: [facility] [employer] Discharge Planning Comments: CM met with patient to complete initial dc planning assessment. CM educated patient on the CM role and verbal consent given by patient to complete assessment. Patient lives at home with family. Patient is independent. At discharge patient plans to return home and feels this is a safe discharge. CM discussed availability of home health, rehab services, and medical equipment. Patient will have family to transport home. Patient denied known discharge needs at this time. CM will continue to follow and will assist as needed with dc plans/needs. Shoe Repairer Apprentice: Brittaney Camejo DCPIA - Discharge Planning Initial Assessment Updated by [id number]: Brittaney Camejo on 03/10/20 11:03 pm * Is the patient Alert and Oriented? Yes * How many steps to enter\exit or inside your home? * PCP L[facility] * [facility] * Preadmission Environment Home Alone * ADLs Independent * Equipment None * List name and contact numbers for known caregivers / representatives who currently or will assist patient after discharge: IAM DUGGAN - DAUGHTER - [phone] * Verbal permission to speak to the caregivers and representatives has been obtained from the patient. Yes * Community resources currently utilized None * Additional services required to return to the preadmission environment? No * Can the patient safely return to the preadmission environment? Yes * Has this patient been hospitalized within the prior 30 days at any hospital? No Coverage Notice Reviewer: [id number] - Brittaney Camejo Notice Issued Date-Time: 03/14/2020 9:50 Notice Type: Patient Choice Letter Notice Delivered To: Patient Relationship to Patient: Warp Knitter Helper Name: Delivery Method: HAND - Hand Delivered Fany Days: Prior Verbal Notification: Recipient Understood Notice: Yes Recipient Signature: Yes Med Rec Note Co-signed by Attending: Coverage Notice Comment: no preference on DME no preference on rehab - INpatient @ [facility] Reviewer: [id number] - Brittaney Camejo Notice Issued Date-Time: 03/14/2020 9:52 Notice Type: IM Discharge Notice Notice Delivered To: Patient Relationship to Patient: Self Warp Knitter Helper Name: Delivery Method: HAND - Hand Delivered Fany Days: Prior Verbal Notification: Recipient Understood Notice: Yes Recipient Signature: Yes Med Rec Note Co-signed by Attending: Coverage Notice Comment: Reviewer: YARIEL Landis Notice Issued Date-Time: 03/18/2020 9:20 Notice Type: IM Discharge Notice Notice Delivered To: Patient Relationship to Patient: Warp Knitter Helper Name: Delivery Method: HAND - Hand Delivered Fany Days: Prior Verbal Notification: Yes Recipient Understood Notice: Recipient Signature: Yes Med Rec Note Co-signed by Attending: Coverage Notice Comment: DC IMM delivered, explained, signed by the patient, and placed in chart. Signed form also left with the patient. Reviewer: [email or web address] Landis Notice Issued Date-Time: 03/18/2020 9:20 Notice Type: Patient Choice Letter Notice Delivered To: Patient Relationship to Patient: Warp Knitter Helper Name: Delivery Method: HAND - Hand Delivered Fany Days: Prior Verbal Notification: Recipient Understood Notice: Yes Recipient Signature: Yes Med Rec Note Co-signed by Attending: Coverage Notice Comment: home health. Reviewer: [email or web address] Landis Notice Issued Date-Time: 03/23/2020 11:40 Notice Type: IM Discharge Notice Notice Delivered To: Patient Relationship to Patient: Warp Knitter Helper Name: Delivery Method: HAND - Hand Delivered Fany Days: Prior Verbal Notification: Yes Recipient Understood Notice: Yes Recipient Signature: Yes Med Rec Note Co-signed by Attending: Coverage Notice Comment: DC IMM Reviewer: [email or web address] Landis Notice Issued Date-Time: 03/23/2020 11:40 Notice Type: Patient Choice Letter Notice Delivered To: Patient Relationship to Patient: Warp Knitter Helper Name: Delivery Method: HAND - Hand Delivered Fany Days: Prior Verbal Notification: Yes Recipient Understood Notice: Yes Recipient Signature: Yes Med Rec Note Co-signed by Attending: Coverage Notice Comment: [facility] FOR [facility] FOR WALKER AND O2, [facility] FOR HOME HEALTH Last DP export: 03/23/20 12:15 p Patient Name: JAMES DUGGAN Page [id number] at 0918 All edits/amendments must be made on the electronic document DICTATION DATE: 03/25/20917 GOLF CLUB ASSEMBLER: JULES 03/25/20917 RPT#: [id number] DC DATE:03/23/20 STATUS: DIS IN [facility] [address] [facility] [place] [address] END OF REPORT
== END 2020-03-23 14:00 | disposition home health service (06) | DRG 164 ==
LOC: D.SDCHOLD 03-03 07:30 → D.CVICU 03-10 11:19 → D.M2 03-17 09:22
PROVIDERS: Family Medicine; Radiology Vascular & Interventional Radiology; ADMIT Thoracic Surgery (Cardiothoracic Vascular Surgery); ATTEND Thoracic Surgery (Cardiothoracic Vascular Surgery)
PROC: 0BTG0ZZ Resection of Left Upper Lung Lobe, Open Approach (ICD-10-PCS; principal; 2020-03-10 11:00)
PROC: 07T70ZZ Resection of Thorax Lymphatic, Open Approach (ICD-10-PCS; 2020-03-10 11:00)
PROC: 0W9B30Z Drainage of Left Pleural Cavity with Drainage Device, Percutaneous Approach (ICD-10-PCS; 2020-03-18)
DX: C78.02 Secondary malignant neoplasm of left lung (principal); F17.213 Nicotine dependence, cigarettes, with withdrawal; I50.32 Chronic diastolic (congestive) heart failure; J93.9 Pneumothorax, unspecified; N39.0 Urinary tract infection, site not specified; C50.919 Malignant neoplasm of unspecified site of unspecified female breast; I11.0 Hypertensive heart disease with heart failure; E55.9 Vitamin D deficiency, unspecified; E66.9 Obesity, unspecified; E78.5 Hyperlipidemia, unspecified; E11.21 Type 2 diabetes mellitus with diabetic nephropathy; M62.81 Muscle weakness (generalized); M62.50 Muscle wasting and atrophy, not elsewhere classified, unspecified site

== ENCOUNTER → 2020-03-30 09:01 | Outpatient (CLI) | payer MEDICARE ==
[2020-03-11 11:17] VITALS: BMI 37.5
[~2020-03-30 09:01] MED LIST: BAYER CHEWABLE81 MG PO; FEMARA2.5 MG PO; LASIX80 MG PO; LEVAQUIN750 MG PO; LIPITOR20 MG PO; LIPITOR40 MG PO; LISINOPRIL2.5 MG PO; LOPRESSOR25 MG PO; METOPROLOL TART50 MG PO; PERCOCET 5-3251 TAB PO; ULTRAM50 MG PO; VITAMIN D1000 UNIT PO
[2020-03-30 09:58] LABS: BASOPHILS 0.3 % (0-2); EOSINOPHILS 1.6 % (0-7); HEMATOCRIT 38.2 % (36.0-48.0); HEMOGLOBIN 11.9 g/dL (12-16); IMMATURE GRANULOCYTES 0.3 % (0-5); LYMPHOCYTES 12.8 % (15-50); MCH 29.8 pg (26.0-34.0); MCHC 31.2 g/dL (31.0-37.0); MCV 95.7 fL (80.0-100.0); MEAN PLATELET VOLUME 9.3 fL (7.4-10.4); MONOCYTES 4.4 % (2-11); NEUTROPHILS 80.6 % (40-80); PLATELET COUNT 390 10x3/uL (130-400); RBC 3.99 10x6/uL (4.00-5.40); RDW 14.5 % (11.5-14.5); WBC 11.5 10x3/uL (4.8-10.8)
== END | disposition home or self-care (01) ==
LOC: D.RAD 08:00
PROVIDERS: ATTEND Thoracic Surgery (Cardiothoracic Vascular Surgery)
DX: Z98.890 Other specified postprocedural states (principal)

== ENCOUNTER 2020-04-14 12:22 | Day surgery (SDC) | payer MEDICARE ==
[~2020-04-14] VITALS: Ht 157.5 cm; Wt 93.0 kg
[2020-04-14 13:07] LABS: HEMATOCRIT 40.7 % (36.0-48.0); MCH 30.4 pg (26.0-34.0); MCHC 31.9 g/dL (31.0-37.0); MCV 95.3 fL (80.0-100.0); MEAN PLATELET VOLUME 9.7 fL (7.4-10.4); RBC 4.27 10x6/uL (4.00-5.40); RDW 14.4 % (11.5-14.5); WBC 9.3 10x3/uL (4.8-10.8)
[2020-04-14 13:39] LABS: ANION GAP 11.7 mmol/L (8-16); APTT 24.9 SECONDS (22.8-39.4); CALCIUM 9.3 mg/dL (8.5-10.1); CARBON DIOXIDE 28.6 mmol/L (21.0-32.0); CREATININE - SERUM 0.8 mg/dL (0.6-1.3); INR 0.98 (0.85-1.17); POTASSIUM - SERUM 4.3 mmol/L (3.5-5.1)
[2020-04-14 13:57] VITALS: BP 154/84; Ht 157.5 cm; Wt 93.0 kg
--- NOTE | 2020-04-15 14:51 | OP ---
PATIENT NAME: JAMES DUGGAN MEDICAL RECORD: [id number] :[birth year] LOCATION:[facility] ADMISSION DATE: SURGEON: MARY TERRAZAS MD DATE OF OPERATION: 04/14/2020 SURGEON: Mary Terrazas MD PROCEDURE PERFORMED: Insertion of left subclavian vein port. PREOPERATIVE DIAGNOSIS: Small cell lung cancer. POSTOPERATIVE DIAGNOSIS: Small cell lung cancer. ANESTHESIA: General. COMPLICATIONS: None. SPECIMENS: None. ESTIMATED BLOOD LOSS: Minimal. DISPOSITION: Home. PROCEDURE FINDINGS: Good blood return and good position by fluoroscopy, 3 cc of 100 units per cc heparin were placed within the port. DESCRIPTION OF PROCEDURE: The patient was brought to the operating suite. Chest was prepped. Subclavian vein was cannulated. Local was used and a port site was created. The catheter was tunneled between the insertion site and the port site, placed at the appropriate site by a fluoroscopy connected to the port. Good blood return. Port was flushed first with Hep-Lock solution and then with 100 units per mL, a total of 3 cc. Port was sutured in to place. Thorough antibiotic irrigation. Wounds were closed. The patient was stable to recovery room. TRANSINT:[id number] Voice Confirmation ID: [id number] DOCUMENT ID: [id number] MARY TERRAZAS MD at 1451 CC: TAMIR MOURA MD [id number] DICTATION DATE: 04/14/20 1532 CHEF GERMAN: 04/14/20 2329 [facility] 04/14/[address] [address]
== END 2020-04-14 16:55 | disposition home or self-care (01) ==
LOC: D.OPS 12:22
PROVIDERS: ATTEND Thoracic Surgery (Cardiothoracic Vascular Surgery)
DX: C34.90 Malignant neoplasm of unspecified part of unspecified bronchus or lung (principal)

== ENCOUNTER → 2020-04-27 09:54 | Outpatient (CLI) | payer MEDICARE ==
[2020-04-14 13:57] VITALS: BMI 37.6
== END | disposition home or self-care (01) ==
LOC: D.MRI 04-16 11:00
PROVIDERS: ATTEND Internal Medicine Medical Oncology
DX: C50.811 Malignant neoplasm of overlapping sites of right female breast (principal); C34.12 Malignant neoplasm of upper lobe, left bronchus or lung